=== PATIENT | female | born 1945 | race Hispanic/Latino ===

== ENCOUNTER 2017-10-09 11:18 | Emergency (ER) | payer MEDICARE ==
[~2017-10-09] VITALS: Ht 152.4 cm; Wt 54.4 kg
[2017-10-09] MEDS ORDERED: ASPIRIN 81 MG CHEW TAB PO ONE (11:30)
[2017-10-09] MEDS ORDERED: HYDROCODONE/APAP 7.5MG-325MG 1 EA TAB PO PRN (11:30)
[2017-10-09] MEDS ORDERED: ONDANSETRON HCL 4 MG ORAL DISINTEGRATING TAB ONE (11:33)
[2017-10-09 11:37] LABS: BASOPHILS % 0.3 % (0.0-1.0); EOSINOPHILS # (AUTO) 0.6 (0.0-0.4); EOSINOPHILS % 6.7 % (0.0-6.0); HEMATOCRIT 31.2 % (34.2-44.1); HEMOGLOBIN 10.5 g/dL (12.0-16.0); LYMPHOCYTES # (AUTO) 1.6 (1.0-3.2); LYMPHOCYTES % 18.7 % (18.0-39.1); MEAN CORPUSCULAR HEMOGLOBIN 27.2 pg (28-32); MEAN CORPUSCULAR HGB CONC 33.7 g/dL (31-35); MEAN CORPUSCULAR VOLUME 80.8 fL (81-99); MONOCYTES # (AUTO) 0.8 (0.2-0.8); MONOCYTES % 8.9 % (4.4-11.3); NEUTROPHILS % 58.3 % (38.7-80.0); PLATELET COUNT 134 x10e3/uL (140-360); RED BLOOD COUNT 3.86 x10e6/uL (3.6-5.1); RED CELL DISTRIBUTION WIDTH 14.5 % (11.7-14.4)
[2017-10-09 11:48] LABS: INR 1.15; PROTHROMBIN TIME 13.8 seconds (11.9-14.5)
[2017-10-09 11:49] LABS: PARTIAL THROMBOPLASTIN TIME 29.6 seconds (23.8-35.5)
[2017-10-09 11:55] LABS: ALBUMIN 3.4 g/dL (3.5-5.0); ALBUMIN/GLOBULIN RATIO 0.8 (0.8-2.0); ANION GAP 14.7 mmol/L (8-16); CALCIUM 8.9 mg/dL (8.4-10.2); CREATININE, SERUM 1.33 mg/dL (0.57-1.11); POTASSIUM 4.7 mmol/L (3.5-5.1)
[2017-10-09] MEDS ORDERED: ONDANSETRON HCL 4 MG ORAL DISINTEGRATING TAB PO ONE (12:00)
[2017-10-09 12:01] LABS: CREATINE KINASE MB 1.8 ng/mL (0-5.0)
[2017-10-09] MEDS ORDERED: SODIUM CHLORIDE 0.9% 500ML 500 ML IV STA (12:01)
[2017-10-09 12:25] LABS: EOSINOPHILS % (MANUAL) 3 % (0-7); LYMPHOCYTES % (MANUAL) 21 % (19-48); MONOCYTES % (MANUAL) 8 % (3.4-9.0); NEUTROPHILS % (MANUAL) 68 % (40-74); PLATELET ESTIMATE ADEQUATE; PLATELET MORPHOLOGY COMMENT NORMAL; RBC MORPHOLOGY COMMENT NORMAL
[2017-10-09 13:16] LABS: BILIRUBIN,URINE NEGATIVE (NEGATIVE); CLARITY,URINE HAZY (CLEAR); COLOR,URINE YELLOW (YELLOW); KETONES,URINE NEGATIVE (NEGATIVE); LEUKOCYTE ESTERASE ,URINE NEGATIVE (NEGATIVE); NITRITE,URINE NEGATIVE (NEGATIVE); PROTEIN,URINE DIPSTICK 2+ (NEGATIVE); URINE UROBILINOGEN 0.2 mg/dL (0.2 - 1)
[2017-10-09 13:18] LABS: WBC,URINE (MAN) 0-5 /HPF (0-5)
[2017-10-09 13:19] LABS: BACTERIA,URINE FEW /HPF; EPITHELIAL CELLS,URINE FEW /LPF
--- NOTE | 2017-10-09 15:46 | Diagnostic Imaging Report ---
ADDENDUM #1 Dose modulation, iterative reconstruction, and/or weight based adjustment of the mA/kV was utilized to reduce the radiation dose to as low as reasonably achievable. Signed by: Dr. Michoacano Marquez M.D. on 10/12/2017 5:03 PM ORIGINAL REPORT Exam: Soft tissue neck CT with IV contrast History: Left-sided facial pain, rule out abscess Comparison studies: None Technique: Axial, coronal and sagittal images from the skull base to the thoracic inlet. Coronal and sagittal images reconstructed from the axial data. Intravenous contrast: 100 cc of Omnipaque 300. Findings: Soft tissues: There is mild asymmetric soft tissue fullness at the base of tongue which extends into the vallecula which has the appearance of lymphoid hyperplasia but could be correlated with direct visualization. No other mass. No rim-enhancing fluid collection indicate abscess. Lymph nodes: Mildly prominent, nonnecrotic enhancing left suprahyoid jugular chain lymph nodes with a left to a node which measures up to 2.5 cm. Mildly enhancing right level 2A lymph node is not significantly enlarged and may be reactive. Vessels: Carotid and vertebral arteries are patent. Moderate scattered calcified atherosclerosis in the aortic arch. Atherosclerosis at the left subclavian artery origin results in only mild stenosis. Calcified atherosclerosis in the cervical carotid bulbs without hemodynamically significant stenosis. Thyroid gland: Small thyroid gland may be sequela of chronic thyroiditis or previous thyroid ablation in the appropriate clinical setting. Parotid glands: Mild asymmetric enhancement of the left parotid gland compared to the right. No distinct mass identified. No calcified sialolith. Submandibular glands: Homogeneous, normal in size, no mass. Orbits: No abnormalities. Paranasal sinuses: Clear. Temporal bones: No abnormalities. Skull base and facial bones: Intact. Dentition: Multiple absent mandibular and maxillary teeth. No periapical lucencies. Lung apices: Nonspecific scarring bilaterally. There are reticulonodular densities in the bilateral upper lobes (left greater than right) in a tree-in-bud pattern. Cervical spine: Strain cervical curvature may be positional. Mild multilevel cervical and thoracic disc degeneration. Disc osteophyte complexes from C3 to T1 indent the thecal sac but do not result in significant canal stenosis. Focal ossification posterior longitudinal ligament at C6 result in only mild canal stenosis. Incidental findings: Partially imaged left frontal parietal hypodensity may reflect sequela of left MCA infarct in this patient with history of prior CVA. IMPRESSION: 1. Mild asymmetric left parotid enhancement may reflect nonspecific infectious or inflammatory parotiditis. No discrete discrete parotid mass. No abscess. 2. Mildly prominent reactive left cervical lymph nodes which can be followed on a clinical basis. Recommend follow-up neck CT of lymph nodes enlarge over time. 3. Mildly prominent asymmetric soft tissue at the left base of tongue favored to represent lymphoid hyperplasia. Recommend correlation with direct visualization 4. Left frontoparietal hypodensity, possibly sequela of left MCA infarct in this patient with history of prior CVA (cannot further evaluate on this exam). Correlate clinically. Recommend follow-up CT or MRI to further evaluate if not previously performed. 5. Nonspecific bilateral upper lobe reticulonodular densities may reflect nonspecific infectious or inflammatory bronchiolitis. Signed by: Dr. Michoacano Marquez M.D. on 10/09/2017 3:43 PM
[2017-10-09] MEDS ORDERED: IOPAMIDOL 370 MG/ML 200 ML INFUS..BTL INJ ONE (18:09)
[2017-10-09] MEDS ORDERED: SODIUM CHLORIDE 0.9% 50ML 50 ML ONE (18:09)
== END 2017-10-09 16:40 | disposition home or self-care (01) ==
LOC: ER 11:18
DX: K11.21 Acute sialoadenitis (principal); I10 Essential (primary) hypertension; E11.9 Type 2 diabetes mellitus without complications; E03.9 Hypothyroidism, unspecified; Z94.4 Liver transplant status; Z86.73 Personal history of transient ischemic attack (TIA), and cerebral infarction without residual deficits
CPT/HCPCS: 36415; 70491; 80053; 81001; 82550; 82553; 83605; 84484; 85025; 85610; 85730; 87040; 87086; 99284; J7040; Q9967

== ENCOUNTER 2018-05-13 16:43 | Observation (INO) | payer MEDICARE ==
[~2018-05-13] VITALS: Ht 152.4 cm; Wt 46.8 kg
--- OUTSIDE RECORDS SUMMARY | 2018-05-13 16:46 | XMS REPORT ---
[facility] Address Unknown Phone Unavailable Care Team Providers Care Ball Fringe Machine Operator Name Role Phone Usman BEAR Unavailable Unavailable Problems This patient has no known problems. Allergies, Adverse Reactions, Alerts This patient has no known allergies or adverse reactions. Medications This patient has no known medications. Results Test Description Test Time Test Comments Text Results Atomic Results Result Comments CT SOFT TISSUE NECK W 2017-10-09 15:11:00 [facility] [address] [address] Patient Name: NARAYAN RASHEED MR #: [id number] : 1945 Age/Sex: 72/F Req #: [id number] Adm Physician: Ordered by: ROBERT BEJARANO SIGNING TEACHER Report #: [id number] Location: ER Room/Bed: Procedure: [id number] CT/CT SOFT TISSUE NECK W Exam Date: 10/09/17 Exam Time: 1230 REPORT STATUS: Signed ADDENDUM #1 Dose modulation, iterative reconstruction, and/or weight based adjustment of the mA/kV was utilized to reduce the radiation dose to as low as reasonably achievable. Signed by: Dr. Josette Marquez M.D. on 10/12/2017 5:03 PM ORIGINAL REPORT Exam: Soft tissue neck CT with IV contrast History: Left-sided facial pain, rule out abscess Comparison studies: None Technique: Axial, coronal and sagittal images from the skull base to the thoracic inlet. Coronal and sagittal images reconstructed from the axial data. Intravenous contrast: 100 cc of Omnipaque 300. Findings: Soft tissues: There is mild asymmetric soft tissue fullness at the base of tongue which extends into the vallecula which has the appearance of lymphoid hyperplasia but could be correlated with direct visualization. No other mass. No rim-enhancing fluid collection indicate abscess. Lymph nodes: Mildly prominent, nonnecrotic enhancing left suprahyoid jugular chain lymph nodes with a left to a node which measures up to 2.5 cm. Mildly enhancing right level 2A lymph node is not significantly enlarged and may be reactive. Vessels: Carotid and vertebral arteries are patent. Moderate scattered calcified atherosclerosis in the aortic arch. Atherosclerosis at the left subclavian artery origin results in only mild stenosis. Calcified atherosc lerosis in the cervical carotid bulbs without hemodynamically significant stenosis. Thyroid gland: Small thyroid gland may be sequela of chronic thyroiditis or previous thyroid ablation in the appropriate clinical setting. Parotid glands: Mild asymmetric enhancement of the left parotid gland compared to the right. No distinct mass identified. No calcified sialolith. Submandibular glands: Homogeneous, normal in size, no mass. Orbits: No abnormalities. Paranasal sinuses: Clear. Temporal bones: No abnormalities. Skull base and facial bones: Intact. Dentition: Multiple absent mandibular and maxillary teeth. No periapical lucencies. Lung apices: Nonspecific scarring bilaterally. There are reticulonodular densities in the bilateral upper lobes (left greater than right) in a tree-in-bud pattern. Cervical spine: Strain cervical curvature may be positional. Mild multilevel cervical and thoracic disc degeneration. Disc osteophyte complexes from C3 to T1 indent the thecal sac but do not result in significant canal stenosis. Focal ossification posterior longitudinal ligament at C6 result in only mild canal stenosis. Incidental findings: Partially imaged left frontal parietal hypodensity may reflect sequela of left MCA infarct in this patient with history of prior CVA. IMPRESSION: 1. Mild asymmetric left parotid enhancement may reflect nonspecific infectious or inflammatory parotiditis. No discrete discrete parotid mass. No abscess. 2. Mildly prominent reactive left cervical lymph nodes which can be followed on a clinical basis. Recommend follow-up neck CT of lymph nodes enlarge over time. 3. Mildly prominent asymmetric soft tissue at the left base of tongue favored to represent lymphoid hyperplasia. Recommend correlation with direct visualization 4. Left frontoparietal hypodensity, possibly sequela of left MCA infarct in this patient with history of prior CVA (cannot further evaluate on this exam). Correlate clinically. Recommend follow-up CT or MRI to further evaluate if not previously performed. 5. Nonspecific bilateral upper lobe reticulonodular densities may reflect nonspecific infectious or inflammatory bronchiolitis. Signed by: Dr. Josette Marquez M.D. on 10/09/2017 3:43 PM Dictated By: JOSETTE MARQUEZ MD [id number] Transcribed By: REMI on 10/09/17 1543 COPY TO: ROBERT BEJARANO NP
[2018-05-13 20:10] LABS: BASOPHILS % 0.4 % (0.0-1.0); EOSINOPHILS # (AUTO) 1.8 (0.0-0.4); EOSINOPHILS % 18.6 % (0.0-6.0); HEMATOCRIT 25.6 % (34.2-44.1); HEMOGLOBIN 7.8 g/dL (12.0-16.0); LYMPHOCYTES # (AUTO) 2.6 (1.0-3.2); LYMPHOCYTES % 27.1 % (18.0-39.1); MEAN CORPUSCULAR HGB CONC 30.5 g/dL (31-35); MEAN CORPUSCULAR VOLUME 85.3 fL (81-99); MONOCYTES # (AUTO) 0.5 (0.2-0.8); NEUTROPHILS # (AUTO) 4.5 (2.1-6.9); NEUTROPHILS % 47.6 % (38.7-80.0); PLATELET COUNT 220 x10e3/uL (140-360); RED CELL DISTRIBUTION WIDTH 15.5 % (11.7-14.4)
[2018-05-13 20:24] LABS: ALBUMIN 2.6 g/dL (3.5-5.0); ALBUMIN/GLOBULIN RATIO 0.6 (0.8-2.0); ANION GAP 10.3 mmol/L (8-16); CALCIUM 8.4 mg/dL (8.4-10.2); CREATININE, SERUM 1.39 mg/dL (0.57-1.11); POTASSIUM 4.3 mmol/L (3.5-5.1)
[2018-05-13] MEDS ORDERED: LISINOPRIL2.5 MG PO (21:17)
[2018-05-13] MEDS ORDERED: MIRTAZAPINE15 MG PO (21:17)
[2018-05-13] MEDS ORDERED: VITAMIN D32000 UNIT PO (21:17)
[2018-05-13] MEDS ORDERED: NEXIUM40 MG PO (21:17)
[2018-05-13] MEDS ORDERED: TACROLIMUS1 MG PO (21:17)
[2018-05-13] MEDS ORDERED: BROMFED DM COU118 ML PO (21:17)
[2018-05-13] MEDS ORDERED: TOPAMAX25 MG PO (21:17)
[2018-05-13] MEDS ORDERED: OXYBUTYNIN CHLOR5 MG PO (21:17)
[2018-05-13] MEDS ORDERED: NAPROXEN250 MG PO (21:17)
[2018-05-13] MEDS ORDERED: REMERON30 MG PO (21:17)
[2018-05-13] MEDS ORDERED: LEVOTHYROXINE88 MCG PO (21:17)
[2018-05-13] MEDS ORDERED: TEMAZEPAM15 MG PO (21:17)
[2018-05-13] MEDS ORDERED: ARICEPT5 MG PO (21:17)
[2018-05-13] MEDS ORDERED: MULTI-VITAMIN1 EACH PO (21:17)
[2018-05-13] MEDS ORDERED: ASPIR 8181 MG PO (21:17)
[2018-05-13] MEDS ORDERED: SODIUM CHLORIDE 0.9% 250ML 250 ML IV ONE (22:30)
[2018-05-13] MEDS ORDERED: NAPROXEN 250 MG TAB PO PRN (22:45)
[2018-05-14] VITALS (7 sets, daily range): BP systolic 133–166; BP diastolic 62–70
[2018-05-14] MEDS ORDERED: SODIUM CHLORIDE 0.9% 250ML 250 ML ONE ×2 (05:05→09:04)
--- NOTE | 2018-05-14 07:05 | NUR ---
PT RESTING IN BED A0X3. PT IS IN NO S.S OF DISTRESS. DENIES PAIN. PT IS CURRENTLY RECEIVED HER 1ST UNIT OF BLOOD FOR A LOW HBG LEVEL. RIGHT AC 18 G SITE IS CLEAN AND DRY . WILL CONTINUE TO MONITOR PT AT THIS TIME. FAMILY IS AT BEDSIDE, SIDE RAILSX2, BED WHEELS LOCKED, CALL LIGHT IS WITHIN EASY REACH, INSTRUCTED TO CALL FOR ASSISTANCE IF NEEDED
[2018-05-14] MEDS: PANTOPRAZOLE SOD 40 MG TABEC PO SCH (08:41)
[2018-05-14] MEDS: LEVOTHYROXINE SODIUM 88 MCG TAB PO SCH (08:41)
[2018-05-14] MEDS: ASPIRIN 81 MG CHEW TAB PO SCH (08:41)
[2018-05-14] MEDS: OXYBUTYNIN CHLORIDE 5 MG TAB PO SCH (08:41)
[2018-05-14] MEDS: TOPIRAMATE 25 MG TAB PO SCH (08:41)
[2018-05-14] MEDS: MULTIVITAMINS/MINERALS TAB PO SCH (08:41)
[2018-05-14] MEDS: TACROLIMUS 1 MG CAP PO SCH ×2 (08:41→17:46)
[2018-05-14] MEDS ORDERED: LISINOPRIL 2.5 MG TAB PO SCH (09:00)
--- NOTE | 2018-05-14 09:30 | NUR ---
2ND UNIT OF BLOOD STARTED VERIFIED WITH ANA LUCAS AT BEDSIDE. WILL MONITOR PT CLOSELY
--- NOTE | 2018-05-14 11:30 | NUR ---
2ND UNIT OF BLOOD COMPLETE. PT IS IN NO S.S OF DISTRESS. V/S ARE STABLE. WILL CONTINUE TO MONITOR PT AND DRAW BLOOD LEVEL PER PROTOCOL
[2018-05-14 13:46] LABS: BASOPHILS % 0.3 % (0.0-1.0); EOSINOPHILS # (AUTO) 1.5 (0.0-0.4); HEMATOCRIT 32.3 % (34.2-44.1); HEMOGLOBIN 10.3 g/dL (12.0-16.0); LYMPHOCYTES # (AUTO) 1.7 (1.0-3.2); LYMPHOCYTES % 19.7 % (18.0-39.1); MEAN CORPUSCULAR HEMOGLOBIN 27.3 pg (28-32); MEAN CORPUSCULAR HGB CONC 31.9 g/dL (31-35); MEAN CORPUSCULAR VOLUME 85.7 fL (81-99); MONOCYTES # (AUTO) 0.4 (0.2-0.8); MONOCYTES % 4.9 % (4.4-11.3); NEUTROPHILS # (AUTO) 4.8 (2.1-6.9); PLATELET COUNT 182 x10e3/uL (140-360); RED BLOOD COUNT 3.77 x10e6/uL (3.6-5.1); RED CELL DISTRIBUTION WIDTH 14.6 % (11.7-14.4)
--- NOTE | 2018-05-14 13:59 | NUR ---
History and Physical cc: low blood counts HPI: 73yoF, PCP , GI , found to have low blood counts; no abdominal pain/melena/hematochezia. Sent to hospital for transfusion. Last colonoscopy 2016 pt reports normal. PMH: liver ds s/p transplent, DM PSx: liver transplant allergies; see emr fh/Sh; widowe;d no etoh/cigs; meds; see MAr ROS; no f/c/s/n/v/D/ASHBY/vision changes/cp/skin rash v/s; revd PE nad anicteric ns1s2 mod bs soft nt nd no e/t a&ox3; vance skin dry n. affect labs/meds; revd A/P: 73yoF Moderate anemia KATELYN Hypothyroidism HTN GERD Dementia Insomnia PLAN d/c naproxen and lisinopril ivf RDW quite high and MCHC low, suggestive of iron deficiency anemia; cannot get anemia panel- got blood transfused renal U/S; Keep overnight for IVF, recheck BMP in am. Tony Husain MD, PhD.
[2018-05-14 14:04] LABS: ALBUMIN 2.4 g/dL (3.5-5.0); ALBUMIN/GLOBULIN RATIO 0.6 (0.8-2.0); CALCIUM 8.3 mg/dL (8.4-10.2); CREATININE, SERUM 1.29 mg/dL (0.57-1.11)
--- NOTE | 2018-05-14 15:27 | NUR ---
PENA letter given to patient. A signed copy placed in chart and to patient.
--- NOTE | 2018-05-14 15:30 | NUR ---
Fish And Wildlife Technician to bedside to discuss plan of care with patient/family. CM/SW role and care transitions discussed. Anticipated discharge plan discussed along with duration of care. CM/SW discussed patients right to make decisions in care. CM/SW work hours given. Patient lives: Patient lives alone. Patients son lives 5 minutes away from her. Admit/Transfer: Admit Hospital/ER visits since last admit: no POA/Emergency contact: Clement Boles Current/Previous Home Health: No PCP/Follow-up Care: Gaurav Jama MD Current/Previous DME: Patient has a cane but does not use it. Medications (referring to index hospitalization or the first time you were in the hospital) a. Were changes made in your medications when you were in the hospital on [date of index hospitalization]? Yes No Not sure Explain: Note: If no or not sure, please skip to question d b. Did you understand the changes? Yes No Explain: c. Were you able to obtain your new medications right away? Yes No n/a SNF only Explain: d. Were you able to take your medications like the doctor wanted you to? Yes No Explain: e. Did the hospital give you an accurate, easy to understand list of medications when you left? Yes No n/a SNF only Explain: Scale of 1-10 how comfortable does patient feel with disease management in outpatient setting: Other Services: Employment Status: Retired Areas of Concerns: Referral Needs: Education Needs: IMM/PENA given and signed (if applicable):JEAN
[2018-05-14] MEDS: SODIUM CHLORIDE 0.9% 1000ML 1,000 ML IV SCH (16:13)
[2018-05-14] MEDS: FERROUS SULFATE 325 MG TAB PO SCH (16:13)
[2018-05-14] MEDS ORDERED: MIRTAZAPINE 15 MG TAB PO SCH (21:00)
[2018-05-14] MEDS ORDERED: DONEPEZIL HCL 5 MG TAB PO SCH (21:00)
[2018-05-14] MEDS ORDERED: TEMAZEPAM 15 MG CAP PO SCH (21:00)
[2018-05-15] VITALS: BP 160/72
[2018-05-15 04:00] VITALS: BP 157/72
[2018-05-15] MEDS: LEVOTHYROXINE SODIUM 88 MCG TAB PO SCH (06:14)
[2018-05-15 06:28] LABS: ANION GAP 9.5 mmol/L (8-16); CALCIUM 8.2 mg/dL (8.4-10.2); CREATININE, SERUM 1.16 mg/dL (0.57-1.11); POTASSIUM 4.5 mmol/L (3.5-5.1)
[2018-05-15] MEDS ORDERED: FERROUS SULFAT325 MG PO (06:50)
--- NOTE | 2018-05-15 06:53 | NUR ---
Discharge summary A/P: 73yoF Moderate anemia KATELYN Hypothyroidism HTN GERD Dementia Insomnia PLAN d/c naproxen and lisinopril ivf RDW quite high and MCHC low, suggestive of iron deficiency anemia; cannot get anemia panel- got blood transfused renal U/S; Keep overnight for IVF, recheck BMP in am. 05/15 renal fn improving; pt wants to go home. encouraged to drink 8 glasses water daily and avoid Naproxen and all NSAIDS. d/c home stable f/u pcp 1 week d/c >35mins. Tony Husain MD, PhD.
[2018-05-15 08:00] VITALS: BP 147/65
[2018-05-15] MEDS: SODIUM CHLORIDE 0.9% 1000ML 1,000 ML IV SCH (08:10)
[2018-05-15 08:33] VITALS: BP 147/65
[2018-05-15] MEDS: FERROUS SULFATE 325 MG TAB PO SCH (08:48)
[2018-05-15] MEDS: ASPIRIN 81 MG CHEW TAB PO SCH (08:48)
[2018-05-15] MEDS: TOPIRAMATE 25 MG TAB PO SCH (08:48)
[2018-05-15] MEDS: MULTIVITAMINS/MINERALS TAB PO SCH (08:48)
[2018-05-15] MEDS: OXYBUTYNIN CHLORIDE 5 MG TAB PO SCH (08:48)
[2018-05-15] MEDS: PANTOPRAZOLE SOD 40 MG TABEC PO SCH (08:48)
[2018-05-15] MEDS: TACROLIMUS 1 MG CAP PO SCH (08:48)
--- NOTE | 2018-05-15 09:00 | NUR ---
PRESCRIPTIONS AND DISCHARGE INSTRUCTIONS GIVEN. PT VERBALIZED UNDERSTANDING. IV DC. PRESSURE DRESSING APPLIED AND TAPED.
--- NOTE | 2018-05-15 09:29 | NUR ---
PT IS OFF UNIT TO HOME
== END 2018-05-15 09:08 | disposition home or self-care (01) ==
LOC: ER 16:43 → ERHOLD 23:34 → UNDOADMOB 23:34 → ERHOLD 05-14 00:19 → MED/SURG 05-14 01:14
PROVIDERS: ADMIT Internal Medicine; ATTEND Internal Medicine
DX: D64.9 Anemia, unspecified (principal); K76.9 Liver disease, unspecified; Z94.4 Liver transplant status; I10 Essential (primary) hypertension; K21.9 Gastro-esophageal reflux disease without esophagitis; E03.9 Hypothyroidism, unspecified; G47.00 Insomnia, unspecified; F03.90 Unspecified dementia, unspecified severity, without behavioral disturbance, psychotic disturbance, mood disturbance, and anxiety; N17.9 Acute kidney failure, unspecified; Z79.4 Long term (current) use of insulin
CPT/HCPCS: 36415 ×3; 80048; 80053 ×2; 85025 ×2; 86850; 86900; 86920; 99281; 99284; G0378 ×2; J7030; J7050; J7507 ×2; P9016; S0164 ×2

== ENCOUNTER 2019-11-08 10:47 | Inpatient (IN) | payer MEDICARE, OTHER ==
[~2019-11-08] VITALS: Ht 152.4 cm; Wt 47.6 kg
[~2019-11-08 10:47] MED LIST: ARICEPT5 MG PO; ASPIR 8181 MG PO; BROMFED DM COU118 ML PO; CLINDAMYCIN HC300 MG PO; DESLORATADINE5 MG PO; FERROUS SULFAT325 MG PO; KEFLEX500 MG PO; LEVOTHYROXINE88 MCG PO; LISINOPRIL2.5 MG PO; MIRTAZAPINE15 MG PO; MULTI-VITAMIN1 EACH PO; NAPROXEN250 MG PO; NEXIUM40 MG PO; OXYBUTYNIN CHLOR5 MG PO; PREDNISONE20 MG PO; REMERON30 MG PO; TACROLIMUS1 MG PO; TEMAZEPAM15 MG PO; TOPAMAX25 MG PO; VITAMIN D32000 UNIT PO
[2019-11-08] MEDS ORDERED: SODIUM CHLORIDE 0.9% 1000ML 1,000 ML IV SCH ×2 (11:00→13:30)
[2019-11-08 11:39] LABS: BASOPHILS % 0.3 % (0.0-1.0); EOSINOPHILS % 0.2 % (0.0-6.0); HEMATOCRIT 39.8 % (34.2-44.1); HEMOGLOBIN 13.1 g/dL (12.0-16.0); LYMPHOCYTES # (AUTO) 2.8 (1.0-3.2); LYMPHOCYTES % 28.4 % (18.0-39.1); MEAN CORPUSCULAR HEMOGLOBIN 28.8 pg (28-32); MEAN CORPUSCULAR HGB CONC 32.9 g/dL (31-35); MEAN CORPUSCULAR VOLUME 87.5 fL (81-99); MONOCYTES # (AUTO) 0.6 (0.2-0.8); MONOCYTES % 5.9 % (4.4-11.3); NEUTROPHILS # (AUTO) 6.4 (2.1-6.9); NEUTROPHILS % 64.5 % (38.7-80.0); PLATELET COUNT 351 x10e3/uL (140-360); RED BLOOD COUNT 4.55 x10e6/uL (3.6-5.1); RED CELL DISTRIBUTION WIDTH 16.1 % (11.7-14.4)
[2019-11-08 11:47] LABS: CLARITY,URINE TURBID (CLEAR); COLOR,URINE BROWN (YELLOW)
[2019-11-08 11:48] LABS: BILIRUBIN,URINE LARGE (NEGATIVE); INR 0.91; KETONES,URINE 1+ (NEGATIVE); LEUKOCYTE ESTERASE ,URINE LARGE (NEGATIVE); NITRITE,URINE POSITIVE (NEGATIVE); PROTEIN,URINE DIPSTICK >=300 (NEGATIVE); PROTHROMBIN TIME 12.7 seconds (11.9-14.5); URINE UROBILINOGEN 8 mg/dL (0.2 - 1)
[2019-11-08 11:55] LABS: ALBUMIN 3.8 g/dL (3.5-5.0); ANION GAP 16.5 mmol/L (8-16); CALCIUM 8.7 mg/dL (8.4-10.2); CREATININE, SERUM 5.18 mg/dL (0.57-1.11); POTASSIUM 5.5 mmol/L (3.5-5.1)
[2019-11-08 11:57] LABS: BACTERIA,URINE MANY /HPF; EPITHELIAL CELLS,URINE MODERATE /LPF; RBC,URINE >50 /HPF (0-5); WBC,URINE (MAN) >50 /HPF (0-5)
[2019-11-08 11:58] LABS: MUCUS,URINE MODERATE (RARE)
[2019-11-08] MEDS ORDERED: CEFTRIAXONE SOD 1 GM/NS 50 ML 50 ML IV ONE (12:00)
[2019-11-08 12:36] LABS: THYROID STIMULATING HORMONE 0.354 uIU/mL (0.350-4.940)
[2019-11-08 15:55] VITALS: BP 131/58
[2019-11-08 16:26] VITALS: BP 110/58
[2019-11-08 16:35] VITALS: BP 110/58
[2019-11-08 16:36] VITALS: BP 110/58
[2019-11-08] MEDS ORDERED: SODIUM CHLORIDE 0.9% 1000ML 1,000 ML IV ONE (17:15)
[2019-11-08] MEDS ORDERED: ACETAMINOPHEN 325 MG TAB PO PRN (18:00)
[2019-11-08] MEDS ORDERED: SODIUM BICARBONATE 8.4% 100 ML in SODIUM CHLORIDE 0.45% 1,000 ML IV SCH (18:00)
[2019-11-08] MEDS ORDERED: DOCUSATE SODIUM 100 MG CAP PO PRN (18:00)
[2019-11-08] MEDS ORDERED: DIOVAN80 MG PO (18:56)
[2019-11-08] MEDS ORDERED: METHYLPREDNISOLO4 M1 PO (19:26)
[2019-11-08] MEDS ORDERED: BACTRIM DS TAB1 EACH PO (19:39)
[2019-11-08 19:49] LABS: HEMATOCRIT 34.2 % (34.2-44.1); HEMOGLOBIN 11.2 g/dL (12.0-16.0)
[2019-11-08 20:00] VITALS: BP 117/57
[2019-11-08] MEDS ORDERED: SODIUM BICARBONATE 8.4% INJ 50 ML SYR IV STA (20:24)
[2019-11-08] MEDS ORDERED: DEXTROSE 5% IV SCH (20:30)
[2019-11-08] MEDS ORDERED: SODIUM BICARBONATE 8.4% IV SCH (20:30)
[2019-11-08] MEDS ORDERED: SOD POLYSTYRENE SULFONATE SUSP 15 GM/60 ML BTL PO ONE (20:30)
[2019-11-08] MEDS ORDERED: DEXTROSE 5% 1,000 ML IV ONE (20:47)
[2019-11-08] MEDS ORDERED: SODIUM BICARBONATE 8.4% SYRING 200 ML ONE (20:47)
[2019-11-08] MEDS: MIRTAZAPINE 15 MG TAB PO SCH (21:55)
[2019-11-08] MEDS: DONEPEZIL HCL 5 MG TAB PO SCH (21:55)
[2019-11-09] VITALS (8 sets, daily range): BP systolic 100–133; BP diastolic 59–70
[2019-11-09 01:10] LABS: HEMATOCRIT 29.9 % (34.2-44.1); HEMOGLOBIN 10.2 g/dL (12.0-16.0)
[2019-11-09 04:49] LABS: BASOPHILS % 0.2 % (0.0-1.0); EOSINOPHILS % 0.2 % (0.0-6.0); HEMATOCRIT 33.3 % (34.2-44.1); HEMOGLOBIN 11.2 g/dL (12.0-16.0); LYMPHOCYTES # (AUTO) 1.3 (1.0-3.2); LYMPHOCYTES % 21.6 % (18.0-39.1); MEAN CORPUSCULAR HEMOGLOBIN 29.4 pg (28-32); MEAN CORPUSCULAR HGB CONC 33.6 g/dL (31-35); MEAN CORPUSCULAR VOLUME 87.4 fL (81-99); MONOCYTES # (AUTO) 0.2 (0.2-0.8); MONOCYTES % 3.2 % (4.4-11.3); NEUTROPHILS # (AUTO) 4.6 (2.1-6.9); PLATELET COUNT 257 x10e3/uL (140-360); RED BLOOD COUNT 3.81 x10e6/uL (3.6-5.1); RED CELL DISTRIBUTION WIDTH 15.9 % (11.7-14.4)
[2019-11-09 05:08] LABS: ANION GAP 12.9 mmol/L (8-16); CALCIUM 7.5 mg/dL (8.4-10.2); CREATININE, SERUM 2.85 mg/dL (0.57-1.11); POTASSIUM 4.9 mmol/L (3.5-5.1)
[2019-11-09] MEDS ORDERED: DEXTROSE 50% SYRINGE 50 ML IV PRN (06:00)
[2019-11-09] MEDS: CEFTRIAXONE SOD 1 GM/NS 50 ML 50 ML IV SCH (06:12)
[2019-11-09] MEDS: LEVOTHYROXINE SODIUM 88 MCG TAB PO SCH (06:13)
[2019-11-09 07:05] LABS: INR 0.92; PARTIAL THROMBOPLASTIN TIME 25.2 seconds (23.8-35.5); PROTHROMBIN TIME 12.8 seconds (11.9-14.5)
[2019-11-09] MEDS: INSULIN REGULAR, HUMAN 100 UNIT/1 ML 3ML VIAL SQ SCH ×4 (07:30→21:00)
[2019-11-09] MEDS: FERROUS SULFATE 325 MG TAB PO SCH ×2 (08:00→18:26)
[2019-11-09] MEDS ORDERED: PANTOPRAZOLE SOD 40 MG TABEC PO SCH (09:00)
[2019-11-09] MEDS: MULTIVITAMINS/MINERALS TAB PO SCH (09:00)
[2019-11-09] MEDS: OXYBUTYNIN CHLORIDE 5 MG TAB PO SCH (09:00)
[2019-11-09] MEDS ORDERED: B&O 60MG R/S 60 MG SUPP PR PRN (09:45)
[2019-11-09] MEDS: CHOLECALCIFEROL 1,000 UNIT TAB PO SCH (11:48)
[2019-11-09] MEDS: PANTOPRAZOLE 40 MG 10ML VIAL IV SCH (11:48)
[2019-11-09] MEDS: TACROLIMUS 1 MG CAP PO SCH ×2 (11:48→18:26)
[2019-11-09] MEDS: TOPIRAMATE 25 MG TAB PO SCH ×2 (11:48→18:26)
[2019-11-09] MEDS: SODIUM BICARBONATE 8.4% SYRING 150 ML in DEXTROSE 5% 1,000 ML IV SCH ×2 (11:48→17:42)
[2019-11-09] MEDS: MIRTAZAPINE 15 MG TAB PO SCH (21:02)
[2019-11-09] MEDS: DONEPEZIL HCL 5 MG TAB PO SCH (21:02)
[2019-11-10] VITALS (8 sets, daily range): BP systolic 110–136; BP diastolic 50–72
[2019-11-10] MEDS: SODIUM BICARBONATE 8.4% SYRING 150 ML in DEXTROSE 5% 1,000 ML IV SCH ×3 (01:56→20:27)
[2019-11-10] MEDS: LEVOTHYROXINE SODIUM 88 MCG TAB PO SCH (05:43)
[2019-11-10] MEDS: CEFTRIAXONE SOD 1 GM/NS 50 ML 50 ML IV SCH (05:43)
[2019-11-10] MEDS: PANTOPRAZOLE 40 MG 10ML VIAL IV SCH (06:54)
[2019-11-10 07:08] LABS: HEMATOCRIT 33.2 % (34.2-44.1); HEMOGLOBIN 11.2 g/dL (12.0-16.0); MEAN CORPUSCULAR HEMOGLOBIN 28.9 pg (28-32); MEAN CORPUSCULAR HGB CONC 33.7 g/dL (31-35); MEAN CORPUSCULAR VOLUME 85.8 fL (81-99); PLATELET COUNT 248 x10e3/uL (140-360); RED BLOOD COUNT 3.87 x10e6/uL (3.6-5.1); RED CELL DISTRIBUTION WIDTH 15.6 % (11.7-14.4)
[2019-11-10 07:26] LABS: CALCIUM 7.5 mg/dL (8.4-10.2); CREATININE, SERUM 1.5 mg/dL (0.57-1.11)
[2019-11-10 08:00] LABS: BAND NEUTROPHILS % (MANUAL) 2 %; LYMPHOCYTES % (MANUAL) 33 % (19-48); MONOCYTES % (MANUAL) 4 % (3.4-9.0); NEUTROPHILS % (MANUAL) 61 % (40-74)
[2019-11-10 08:01] LABS: MICROCYTOSIS MODERATE
[2019-11-10 08:03] LABS: ANISOCYTOSIS SLIGHT; POIKILOCYTOSIS SLIGHT
[2019-11-10 09:31] LABS: CALCIUM 7.6 mg/dL (8.4-10.2); CREATININE, SERUM 1.5 mg/dL (0.57-1.11)
[2019-11-10] MEDS: INSULIN REGULAR, HUMAN 100 UNIT/1 ML 3ML VIAL SQ SCH ×4 (09:50→20:22)
[2019-11-10] MEDS: TACROLIMUS 1 MG CAP PO SCH ×2 (09:52→17:21)
[2019-11-10] MEDS: OXYBUTYNIN CHLORIDE 5 MG TAB PO SCH (09:52)
[2019-11-10] MEDS: CHOLECALCIFEROL 1,000 UNIT TAB PO SCH (09:52)
[2019-11-10] MEDS: MULTIVITAMINS/MINERALS TAB PO SCH (09:52)
[2019-11-10] MEDS: TOPIRAMATE 25 MG TAB PO SCH ×2 (09:52→17:21)
[2019-11-10] MEDS: FERROUS SULFATE 325 MG TAB PO SCH ×2 (09:52→17:21)
[2019-11-10] MEDS: MIRTAZAPINE 15 MG TAB PO SCH (20:27)
[2019-11-10] MEDS: ZOLPIDEM TARTRATE 5 MG TAB PO PRN (20:27)
[2019-11-10] MEDS: DONEPEZIL HCL 5 MG TAB PO SCH (20:27)
[2019-11-11] VITALS (8 sets, daily range): BP systolic 106–128; BP diastolic 49–64
[2019-11-11 04:48] LABS: BASOPHILS % 0.3 % (0.0-1.0); EOSINOPHILS # (AUTO) 0.2 (0.0-0.4); EOSINOPHILS % 2.5 % (0.0-6.0); HEMATOCRIT 30.2 % (34.2-44.1); HEMOGLOBIN 10.2 g/dL (12.0-16.0); LYMPHOCYTES # (AUTO) 3.4 (1.0-3.2); LYMPHOCYTES % 45.4 % (18.0-39.1); MEAN CORPUSCULAR HEMOGLOBIN 29.7 pg (28-32); MEAN CORPUSCULAR HGB CONC 33.8 g/dL (31-35); MEAN CORPUSCULAR VOLUME 87.8 fL (81-99); MONOCYTES # (AUTO) 0.6 (0.2-0.8); MONOCYTES % 7.8 % (4.4-11.3); NEUTROPHILS # (AUTO) 3.3 (2.1-6.9); NEUTROPHILS % 43.5 % (38.7-80.0); PLATELET COUNT 235 x10e3/uL (140-360); RED BLOOD COUNT 3.44 x10e6/uL (3.6-5.1)
[2019-11-11 05:09] LABS: ANION GAP 11.5 mmol/L (8-16); CALCIUM 7.4 mg/dL (8.4-10.2); CREATININE, SERUM 1.18 mg/dL (0.57-1.11); POTASSIUM 3.5 mmol/L (3.5-5.1)
[2019-11-11] MEDS: LEVOTHYROXINE SODIUM 88 MCG TAB PO SCH (05:46)
[2019-11-11] MEDS: PANTOPRAZOLE 40 MG 10ML VIAL IV SCH (05:46)
[2019-11-11] MEDS: CEFTRIAXONE SOD 1 GM/NS 50 ML 50 ML IV SCH (05:46)
[2019-11-11] MEDS: SODIUM BICARBONATE 8.4% SYRING 150 ML in DEXTROSE 5% 1,000 ML IV SCH ×3 (05:46→20:45)
[2019-11-11] MEDS: INSULIN REGULAR, HUMAN 100 UNIT/1 ML 3ML VIAL SQ SCH ×4 (07:30→21:16)
[2019-11-11] MEDS: MULTIVITAMINS/MINERALS TAB PO SCH (08:50)
[2019-11-11] MEDS: OXYBUTYNIN CHLORIDE 5 MG TAB PO SCH (08:50)
[2019-11-11] MEDS: FERROUS SULFATE 325 MG TAB PO SCH ×2 (08:50→17:15)
[2019-11-11] MEDS: CHOLECALCIFEROL 1,000 UNIT TAB PO SCH (08:54)
[2019-11-11] MEDS: TACROLIMUS 1 MG CAP PO SCH ×2 (08:54→17:15)
[2019-11-11] MEDS: TOPIRAMATE 25 MG TAB PO SCH ×2 (08:54→17:15)
[2019-11-11] MEDS: ONDANSETRON HCL INJ 2MG/ML 2ML 2 MG/ML VIAL IV PRN (20:00)
[2019-11-11] MEDS: MIRTAZAPINE 15 MG TAB PO SCH (20:45)
[2019-11-11] MEDS: DONEPEZIL HCL 5 MG TAB PO SCH (20:45)
[2019-11-11] MEDS: ZOLPIDEM TARTRATE 5 MG TAB PO PRN (20:46)
[2019-11-12] VITALS (10 sets, daily range): BP systolic 90–125; BP diastolic 50–73
[2019-11-12] MEDS: PANTOPRAZOLE 40 MG 10ML VIAL IV SCH (05:25)
[2019-11-12] MEDS: CEFTRIAXONE SOD 1 GM/NS 50 ML 50 ML IV SCH (05:25)
[2019-11-12] MEDS: LEVOTHYROXINE SODIUM 88 MCG TAB PO SCH (05:25)
[2019-11-12 05:26] LABS: BASOPHILS % 0.1 % (0.0-1.0); EOSINOPHILS % 0.3 % (0.0-6.0); HEMATOCRIT 28.6 % (34.2-44.1); HEMOGLOBIN 9.6 g/dL (12.0-16.0); LYMPHOCYTES # (AUTO) 2.7 (1.0-3.2); LYMPHOCYTES % 28.4 % (18.0-39.1); MEAN CORPUSCULAR HEMOGLOBIN 28.8 pg (28-32); MEAN CORPUSCULAR HGB CONC 33.6 g/dL (31-35); MEAN CORPUSCULAR VOLUME 85.9 fL (81-99); MONOCYTES # (AUTO) 0.9 (0.2-0.8); MONOCYTES % 9.4 % (4.4-11.3); NEUTROPHILS # (AUTO) 5.7 (2.1-6.9); NEUTROPHILS % 60.9 % (38.7-80.0); PLATELET COUNT 213 x10e3/uL (140-360); RED BLOOD COUNT 3.33 x10e6/uL (3.6-5.1); RED CELL DISTRIBUTION WIDTH 14.5 % (11.7-14.4)
[2019-11-12 06:05] LABS: ALBUMIN 2.4 g/dL (3.5-5.0); ALBUMIN/GLOBULIN RATIO 0.9 (0.8-2.0); ANION GAP 10.2 mmol/L (8-16); CREATININE, SERUM 1.21 mg/dL (0.57-1.11); POTASSIUM 3.2 mmol/L (3.5-5.1)
[2019-11-12] MEDS ORDERED: POTASSIUM CHLORIDE 20 MEQ TAB CR PO STA (06:18)
[2019-11-12] MEDS ORDERED: SODIUM CHLORIDE 0.9% 1000ML 1,000 ML ONE (06:29)
[2019-11-12] MEDS: SODIUM CHLORIDE 0.9% 1000ML 1,000 ML IV SCH ×2 (06:33→20:50)
[2019-11-12] MEDS: INSULIN REGULAR, HUMAN 100 UNIT/1 ML 3ML VIAL SQ SCH ×4 (07:30→21:00)
[2019-11-12] MEDS: TOPIRAMATE 25 MG TAB PO SCH ×2 (08:53→16:26)
[2019-11-12] MEDS: TACROLIMUS 1 MG CAP PO SCH ×2 (08:53→16:26)
[2019-11-12] MEDS: CHOLECALCIFEROL 1,000 UNIT TAB PO SCH (08:53)
[2019-11-12] MEDS: FERROUS SULFATE 325 MG TAB PO SCH ×2 (08:53→16:25)
[2019-11-12] MEDS: OXYBUTYNIN CHLORIDE 5 MG TAB PO SCH (08:53)
[2019-11-12] MEDS: MULTIVITAMINS/MINERALS TAB PO SCH (08:53)
[2019-11-12] MEDS ORDERED: CITRATE OF MAGNESIA 300ML BOTTLE PO ONE (10:00)
[2019-11-12] MEDS: ONDANSETRON HCL INJ 2MG/ML 2ML 2 MG/ML VIAL IV PRN (11:45)
[2019-11-12] MEDS ORDERED: POTASSIUM CHLORIDE 20 MEQ TAB CR PO NR (12:00)
[2019-11-12] MEDS ORDERED: TRAMADOL HCL 50 MG TAB PO PRN (16:00)
[2019-11-12] MEDS: ZOLPIDEM TARTRATE 5 MG TAB PO PRN (20:47)
[2019-11-12] MEDS: MIRTAZAPINE 15 MG TAB PO SCH (20:47)
[2019-11-12] MEDS: DONEPEZIL HCL 5 MG TAB PO SCH (20:47)
[2019-11-13] VITALS (10 sets, daily range): BP systolic 115–137; BP diastolic 47–67
[2019-11-13] MEDS: SODIUM CHLORIDE 0.9% 1000ML 1,000 ML IV SCH ×3 (05:00→10:00)
[2019-11-13 05:35] LABS: BASOPHILS % 0.4 % (0.0-1.0); EOSINOPHILS # (AUTO) 0.1 (0.0-0.4); EOSINOPHILS % 0.5 % (0.0-6.0); LYMPHOCYTES # (AUTO) 2.5 (1.0-3.2); LYMPHOCYTES % 21.6 % (18.0-39.1); MEAN CORPUSCULAR HEMOGLOBIN 32.4 pg (28-32); MEAN CORPUSCULAR HGB CONC 34.4 g/dL (31-35); MEAN CORPUSCULAR VOLUME 94.1 fL (81-99); MONOCYTES % 8.8 % (4.4-11.3); NEUTROPHILS # (AUTO) 7.7 (2.1-6.9); NEUTROPHILS % 67.6 % (38.7-80.0); PLATELET COUNT 199 x10e3/uL (140-360); RED CELL DISTRIBUTION WIDTH 15.2 % (11.7-14.4)
[2019-11-13] MEDS: CEFTRIAXONE SOD 1 GM/NS 50 ML 50 ML IV SCH (05:48)
[2019-11-13] MEDS: LEVOTHYROXINE SODIUM 88 MCG TAB PO SCH (05:48)
[2019-11-13] MEDS: PANTOPRAZOLE 40 MG 10ML VIAL IV SCH (05:48)
[2019-11-13 05:56] LABS: ALBUMIN 2.9 g/dL (3.5-5.0); ALBUMIN/GLOBULIN RATIO 0.9 (0.8-2.0); ANION GAP 13.2 mmol/L (8-16); CREATININE, SERUM 1.68 mg/dL (0.57-1.11); POTASSIUM 3.2 mmol/L (3.5-5.1)
[2019-11-13] MEDS: INSULIN REGULAR, HUMAN 100 UNIT/1 ML 3ML VIAL SQ SCH ×4 (07:30→21:00)
[2019-11-13] MEDS: FERROUS SULFATE 325 MG TAB PO SCH ×2 (08:00→17:00)
[2019-11-13] MEDS ORDERED: POTASSIUM CHLORIDE 20 MEQ TAB CR PO ONE (08:45)
[2019-11-13] MEDS: TACROLIMUS 1 MG CAP PO SCH ×2 (09:00→17:00)
[2019-11-13] MEDS: CHOLECALCIFEROL 1,000 UNIT TAB PO SCH (09:00)
[2019-11-13] MEDS: MULTIVITAMINS/MINERALS TAB PO SCH (09:00)
[2019-11-13] MEDS: OXYBUTYNIN CHLORIDE 5 MG TAB PO SCH (09:00)
[2019-11-13] MEDS: TOPIRAMATE 25 MG TAB PO SCH ×2 (09:00→17:00)
[2019-11-13] MEDS ORDERED: POTASSIUM CHLORIDE 20MEQ/100ML 100 ML IV ONE ×2 (10:30→13:00)
[2019-11-13] MEDS ORDERED: ONDANSETRON HCL INJ 2MG/ML 2ML 2 MG/ML VIAL ONE (12:26)
[2019-11-13] MEDS ORDERED: DEXAMETHASONE SOD PHOS INJ 4 MG/ML VIAL ONE (12:26)
[2019-11-13] MEDS ORDERED: PHENYLEPHRINE HCL 1% 10 MG/ML VIAL ONE (12:26)
[2019-11-13] MEDS ORDERED: PROPOFOL IV EMULSION 10 MG/ML 20 ML VIAL ONE (12:26)
[2019-11-13] MEDS ORDERED: SEVOFLURANE INHAL SOLN 250 ML PEN BTL ONE (12:26)
[2019-11-13] MEDS ORDERED: ROCURONIUM BROMIDE 10 MG/ML 5ML VIAL IV ONE (12:26)
[2019-11-13] MEDS ORDERED: LIDOCAINE HCL 2% LOCAL INJ 5 ML SDV VIAL INJ ONE (12:26)
[2019-11-13] MEDS ORDERED: FENTANYL CITRATE/PF 100MCG/2 ML INJ ONE (13:03)
[2019-11-13] MEDS ORDERED: IOPAMIDOL 300MG/ML 50ML INFUS..BTL IV ONE (13:13)
[2019-11-13] MEDS ORDERED: B&O 60MG R/S 60 MG SUPP PR ONE (13:13)
[2019-11-13] MEDS ORDERED: MORPHINE SULFATE INJ 4 MG/ML INJ 1ML IV PRN (15:15)
[2019-11-13] MEDS: DEXTROSE 5%/LACTATED RINGERS 1,000 ML IV SCH ×2 (15:15→17:21)
[2019-11-13] MEDS ORDERED: ONDANSETRON HCL INJ 2MG/ML 2ML 2 MG/ML VIAL IV PRN (15:15)
[2019-11-13] MEDS: DONEPEZIL HCL 5 MG TAB PO SCH (20:50)
[2019-11-13] MEDS: MIRTAZAPINE 15 MG TAB PO SCH (20:50)
[2019-11-14] VITALS (11 sets, daily range): BP systolic 110–155; BP diastolic 46–84
[2019-11-14 04:50] LABS: BASOPHILS % 0.1 % (0.0-1.0); HEMOGLOBIN 8.2 g/dL (12.0-16.0); LYMPHOCYTES # (AUTO) 1.6 (1.0-3.2); LYMPHOCYTES % 10.9 % (18.0-39.1); MEAN CORPUSCULAR HEMOGLOBIN 28.8 pg (28-32); MEAN CORPUSCULAR HGB CONC 32.8 g/dL (31-35); MEAN CORPUSCULAR VOLUME 87.7 fL (81-99); MONOCYTES # (AUTO) 0.9 (0.2-0.8); MONOCYTES % 5.9 % (4.4-11.3); NEUTROPHILS % 81.9 % (38.7-80.0); PLATELET COUNT 260 x10e3/uL (140-360); RED BLOOD COUNT 2.85 x10e6/uL (3.6-5.1); RED CELL DISTRIBUTION WIDTH 14.5 % (11.7-14.4)
[2019-11-14 05:11] LABS: ALBUMIN 2.2 g/dL (3.5-5.0); ALBUMIN/GLOBULIN RATIO 0.8 (0.8-2.0); ANION GAP 12.2 mmol/L (8-16); CALCIUM 7.4 mg/dL (8.4-10.2); CREATININE, SERUM 2.12 mg/dL (0.57-1.11); MAGNESIUM 1.8 MG/DL (1.3-2.1); PHOSPHORUS 3.7 MG/DL (2.3-4.7); POTASSIUM 4.2 mmol/L (3.5-5.1)
[2019-11-14] MEDS: LEVOTHYROXINE SODIUM 88 MCG TAB PO SCH (05:43)
[2019-11-14] MEDS: CEFTRIAXONE SOD 1 GM/NS 50 ML 50 ML IV SCH (05:46)
[2019-11-14] MEDS: DEXTROSE 5%/LACTATED RINGERS 1,000 ML IV SCH (05:46)
[2019-11-14] MEDS: PANTOPRAZOLE 40 MG 10ML VIAL IV SCH (05:52)
[2019-11-14] MEDS: INSULIN REGULAR, HUMAN 100 UNIT/1 ML 3ML VIAL SQ SCH ×4 (08:14→21:00)
[2019-11-14] MEDS: SODIUM CHLORIDE 0.9% 1000ML 1,000 ML IV SCH ×2 (09:34→19:59)
[2019-11-14] MEDS: MULTIVITAMINS/MINERALS TAB PO SCH (09:49)
[2019-11-14] MEDS: TACROLIMUS 1 MG CAP PO SCH ×2 (09:49→17:34)
[2019-11-14] MEDS: CHOLECALCIFEROL 1,000 UNIT TAB PO SCH (09:50)
[2019-11-14] MEDS: TOPIRAMATE 25 MG TAB PO SCH ×2 (09:50→17:34)
[2019-11-14] MEDS: OXYBUTYNIN CHLORIDE 5 MG TAB PO SCH (09:50)
[2019-11-14] MEDS: FERROUS SULFATE 325 MG TAB PO SCH ×2 (09:52→17:34)
[2019-11-14] MEDS: NYSTATIN SUSPENSION 5 ML UDC PO SCH ×2 (19:33→23:53)
[2019-11-14] MEDS: MIRTAZAPINE 15 MG TAB PO SCH (21:36)
[2019-11-14] MEDS: DONEPEZIL HCL 5 MG TAB PO SCH (21:36)
[2019-11-15] VITALS (7 sets, daily range): BP systolic 118–143; BP diastolic 41–64
[2019-11-15 04:57] LABS: BASOPHILS % 0.2 % (0.0-1.0); EOSINOPHILS % 0.4 % (0.0-6.0); HEMATOCRIT 21.7 % (34.2-44.1); LYMPHOCYTES # (AUTO) 2.2 (1.0-3.2); LYMPHOCYTES % 24.3 % (18.0-39.1); MEAN CORPUSCULAR HEMOGLOBIN 28.9 pg (28-32); MEAN CORPUSCULAR HGB CONC 32.3 g/dL (31-35); MEAN CORPUSCULAR VOLUME 89.7 fL (81-99); MONOCYTES # (AUTO) 0.7 (0.2-0.8); MONOCYTES % 7.7 % (4.4-11.3); NEUTROPHILS # (AUTO) 5.9 (2.1-6.9); NEUTROPHILS % 66.4 % (38.7-80.0); PLATELET COUNT 261 x10e3/uL (140-360); RED BLOOD COUNT 2.42 x10e6/uL (3.6-5.1); RED CELL DISTRIBUTION WIDTH 14.7 % (11.7-14.4)
[2019-11-15] MEDS: PANTOPRAZOLE 40 MG 10ML VIAL IV SCH (05:23)
[2019-11-15] MEDS: CEFTRIAXONE SOD 1 GM/NS 50 ML 50 ML IV SCH (05:23)
[2019-11-15] MEDS: LEVOTHYROXINE SODIUM 88 MCG TAB PO SCH (05:23)
[2019-11-15] MEDS: NYSTATIN SUSPENSION 5 ML UDC PO SCH ×4 (05:23→23:39)
[2019-11-15] MEDS: SODIUM CHLORIDE 0.9% 1000ML 1,000 ML IV SCH ×2 (05:23→19:00)
[2019-11-15 05:26] LABS: ALBUMIN 2.1 g/dL (3.5-5.0); ALBUMIN/GLOBULIN RATIO 0.8 (0.8-2.0); ANION GAP 10.7 mmol/L (8-16); CALCIUM 7.1 mg/dL (8.4-10.2); CREATININE, SERUM 1.89 mg/dL (0.57-1.11); MAGNESIUM 1.7 MG/DL (1.3-2.1); PHOSPHORUS 2.4 MG/DL (2.3-4.7); POTASSIUM 3.7 mmol/L (3.5-5.1)
[2019-11-15] MEDS: INSULIN REGULAR, HUMAN 100 UNIT/1 ML 3ML VIAL SQ SCH ×4 (07:30→21:00)
[2019-11-15] MEDS: FERROUS SULFATE 325 MG TAB PO SCH ×2 (08:00→18:02)
[2019-11-15] MEDS: OXYBUTYNIN CHLORIDE 5 MG TAB PO SCH (09:03)
[2019-11-15] MEDS: TACROLIMUS 1 MG CAP PO SCH ×2 (09:03→18:01)
[2019-11-15] MEDS: CHOLECALCIFEROL 1,000 UNIT TAB PO SCH (09:03)
[2019-11-15] MEDS: TOPIRAMATE 25 MG TAB PO SCH ×2 (09:03→18:01)
[2019-11-15] MEDS: MULTIVITAMINS/MINERALS TAB PO SCH (09:03)
[2019-11-15 09:33] LABS: BASOPHILS % 0.2 % (0.0-1.0); EOSINOPHILS # (AUTO) 0.1 (0.0-0.4); EOSINOPHILS % 0.7 % (0.0-6.0); HEMOGLOBIN 7.1 g/dL (12.0-16.0); LYMPHOCYTES # (AUTO) 1.7 (1.0-3.2); LYMPHOCYTES % 18.9 % (18.0-39.1); MEAN CORPUSCULAR HEMOGLOBIN 29.2 pg (28-32); MEAN CORPUSCULAR HGB CONC 32.4 g/dL (31-35); MEAN CORPUSCULAR VOLUME 90.1 fL (81-99); MONOCYTES # (AUTO) 0.6 (0.2-0.8); MONOCYTES % 7.1 % (4.4-11.3); NEUTROPHILS # (AUTO) 6.5 (2.1-6.9); NEUTROPHILS % 72.2 % (38.7-80.0); PLATELET COUNT 233 x10e3/uL (140-360); RED BLOOD COUNT 2.43 x10e6/uL (3.6-5.1); RED CELL DISTRIBUTION WIDTH 14.7 % (11.7-14.4)
[2019-11-15 09:35] LABS: HEMATOCRIT 21.9 % (34.2-44.1)
[2019-11-15] MEDS: DONEPEZIL HCL 5 MG TAB PO SCH (20:43)
[2019-11-15] MEDS: MIRTAZAPINE 15 MG TAB PO SCH (20:43)
[2019-11-16] VITALS (8 sets, daily range): BP systolic 123–152; BP diastolic 57–77
[2019-11-16 04:48] LABS: MEAN CORPUSCULAR HEMOGLOBIN 29.4 pg (28-32); MEAN CORPUSCULAR HGB CONC 32.9 g/dL (31-35); MEAN CORPUSCULAR VOLUME 89.4 fL (81-99); PLATELET COUNT 238 x10e3/uL (140-360); RED BLOOD COUNT 2.35 x10e6/uL (3.6-5.1); RED CELL DISTRIBUTION WIDTH 14.4 % (11.7-14.4)
[2019-11-16 04:57] LABS: HEMOGLOBIN 6.9 g/dL (12.0-16.0)
[2019-11-16 05:10] LABS: ALBUMIN 2.1 g/dL (3.5-5.0); ALBUMIN/GLOBULIN RATIO 0.9 (0.8-2.0); ANION GAP 11.4 mmol/L (8-16); CALCIUM 7.1 mg/dL (8.4-10.2); CREATININE, SERUM 1.66 mg/dL (0.57-1.11); MAGNESIUM 1.6 MG/DL (1.3-2.1); PHOSPHORUS 2.2 MG/DL (2.3-4.7); POTASSIUM 3.4 mmol/L (3.5-5.1)
[2019-11-16] MEDS: NYSTATIN SUSPENSION 5 ML UDC PO SCH ×4 (06:06→23:53)
[2019-11-16] MEDS: PANTOPRAZOLE 40 MG 10ML VIAL IV SCH (06:06)
[2019-11-16] MEDS: LEVOTHYROXINE SODIUM 88 MCG TAB PO SCH (06:06)
[2019-11-16] MEDS: CEFTRIAXONE SOD 1 GM/NS 50 ML 50 ML IV SCH (06:06)
[2019-11-16] MEDS ORDERED: SODIUM CHLORIDE FLUSH 10 ML SYR INJ PRN (06:45)
[2019-11-16 06:59] LABS: PLATELET ESTIMATE ADEQUATE; PLATELET MORPHOLOGY COMMENT RARE EDTA CLUMPING; POIKILOCYTOSIS SLIGHT
[2019-11-16 07:00] LABS: RBC MORPHOLOGY COMMENT NORMAL
[2019-11-16 07:02] LABS: LYMPHOCYTES % (MANUAL) 25 % (19-48); MONOCYTES % (MANUAL) 8 % (3.4-9.0); NEUTROPHILS % (MANUAL) 67 % (40-74)
[2019-11-16] MEDS: INSULIN REGULAR, HUMAN 100 UNIT/1 ML 3ML VIAL SQ SCH ×4 (07:30→20:35)
[2019-11-16] MEDS ORDERED: SODIUM CHLORIDE 0.9% 250ML 250 ML IV SCH (07:30)
[2019-11-16] MEDS: FERROUS SULFATE 325 MG TAB PO SCH ×2 (07:59→17:44)
[2019-11-16] MEDS: TACROLIMUS 1 MG CAP PO SCH ×2 (09:33→17:50)
[2019-11-16] MEDS: OXYBUTYNIN CHLORIDE 5 MG TAB PO SCH (09:33)
[2019-11-16] MEDS: MULTIVITAMINS/MINERALS TAB PO SCH (09:33)
[2019-11-16] MEDS: CHOLECALCIFEROL 1,000 UNIT TAB PO SCH (09:34)
[2019-11-16] MEDS: TOPIRAMATE 25 MG TAB PO SCH ×2 (09:34→17:44)
[2019-11-16] MEDS ORDERED: FUROSEMIDE INJ 10 MG/ML 2 ML VIAL IV ONE (09:45)
[2019-11-16] MEDS ORDERED: POTASSIUM CHLORIDE 20 MEQ TAB CR PO ONE (10:30)
[2019-11-16] MEDS ORDERED: CALCIUM GLUCONATE 10% INJ 9.3 MEQ in SODIUM CHLORIDE 0.9% 100 ML 100 ML IV ONE (10:30)
[2019-11-16] MEDS ORDERED: POTASSIUM PHOSPHATE 20 MM in SODIUM CHLORIDE 0.9% 250ML 250 ML IV ONE (13:00)
[2019-11-16 15:54] LABS: HEMATOCRIT 30.3 % (34.2-44.1); HEMOGLOBIN 10.2 g/dL (12.0-16.0)
[2019-11-16] MEDS: DONEPEZIL HCL 5 MG TAB PO SCH (20:22)
[2019-11-16] MEDS: MIRTAZAPINE 15 MG TAB PO SCH (20:22)
[2019-11-17] VITALS: BP 138/65
[2019-11-17 04:00] VITALS: BP 146/62
[2019-11-17 04:48] LABS: BASOPHILS % 0.5 % (0.0-1.0); EOSINOPHILS # (AUTO) 0.2 (0.0-0.4); EOSINOPHILS % 2.6 % (0.0-6.0); HEMATOCRIT 28.5 % (34.2-44.1); HEMOGLOBIN 9.7 g/dL (12.0-16.0); LYMPHOCYTES % 22.2 % (18.0-39.1); MEAN CORPUSCULAR HEMOGLOBIN 29.8 pg (28-32); MEAN CORPUSCULAR VOLUME 87.4 fL (81-99); MONOCYTES # (AUTO) 0.9 (0.2-0.8); MONOCYTES % 9.9 % (4.4-11.3); NEUTROPHILS # (AUTO) 5.6 (2.1-6.9); NEUTROPHILS % 63.4 % (38.7-80.0); PLATELET COUNT 244 x10e3/uL (140-360); RED BLOOD COUNT 3.26 x10e6/uL (3.6-5.1)
[2019-11-17 05:17] LABS: ALBUMIN 2.4 g/dL (3.5-5.0); ALBUMIN/GLOBULIN RATIO 0.9 (0.8-2.0); ANION GAP 13.4 mmol/L (8-16); CALCIUM 7.3 mg/dL (8.4-10.2); CREATININE, SERUM 1.66 mg/dL (0.57-1.11); MAGNESIUM 1.4 MG/DL (1.3-2.1); POTASSIUM 3.4 mmol/L (3.5-5.1)
[2019-11-17] MEDS: CEFTRIAXONE SOD 1 GM/NS 50 ML 50 ML IV SCH (05:35)
[2019-11-17] MEDS: PANTOPRAZOLE 40 MG 10ML VIAL IV SCH (05:36)
[2019-11-17] MEDS: LEVOTHYROXINE SODIUM 88 MCG TAB PO SCH (05:36)
[2019-11-17] MEDS: NYSTATIN SUSPENSION 5 ML UDC PO SCH (06:00)
[2019-11-17] MEDS ORDERED: TYLENOL325 M2 PO (06:56)
[2019-11-17] MEDS ORDERED: PROBIOTIC & AC1 EACH PO (06:56)
[2019-11-17] MEDS ORDERED: COLACE100 MG PO (06:56)
[2019-11-17] MEDS ORDERED: MULTIVITAMINS1 EAC6 PO (06:56)
[2019-11-17] MEDS ORDERED: PANTOPRAZOLE SO20 MG PO (06:56)
[2019-11-17] MEDS ORDERED: NYSTATIN100000 UNI PO (06:56)
[2019-11-17] MEDS: INSULIN REGULAR, HUMAN 100 UNIT/1 ML 3ML VIAL SQ SCH (07:30)
[2019-11-17 08:00] VITALS: BP 137/61
[2019-11-17] MEDS: FERROUS SULFATE 325 MG TAB PO SCH (08:20)
[2019-11-17] MEDS: CHOLECALCIFEROL 1,000 UNIT TAB PO SCH (08:56)
[2019-11-17] MEDS: MULTIVITAMINS/MINERALS TAB PO SCH (08:56)
[2019-11-17] MEDS: TOPIRAMATE 25 MG TAB PO SCH (08:56)
[2019-11-17] MEDS: TACROLIMUS 1 MG CAP PO SCH (08:56)
[2019-11-17] MEDS: OXYBUTYNIN CHLORIDE 5 MG TAB PO SCH (08:56)
[2019-11-17 09:00] VITALS: BP 137/61
[2019-11-17] MEDS ORDERED: CALCIUM GLUCONATE 10% INJ 4.65 MEQ in SODIUM CHLORIDE 0.9% 50ML 50 ML IV ONE (09:00)
[2019-11-17] MEDS ORDERED: POTASSIUM CHLORIDE 20 MEQ TAB CR PO ONE (09:15)
[2019-11-17] MEDS ORDERED: SODIUM BICARBONATE 8.4% 75 ML in SODIUM CHLORIDE 0.45% 1,000 ML IV SCH (10:30)
== END 2019-11-17 11:00 | DRG 654 ==
LOC: ER 10:50 → ERHOLD 12:54 → IMCU 16:00
PROVIDERS: ADMIT Internal Medicine; ATTEND Internal Medicine
PROC: 0T788DZ Dilation of Bilateral Ureters with Intraluminal Device, Via Natural or Artificial Opening Endoscopic (ICD-10-PCS; 2019-11-13)
PROC: 0TQB0ZZ Repair Bladder, Open Approach (ICD-10-PCS; 2019-11-13)
PROC: BT141ZZ Fluoroscopy of Kidneys, Ureters and Bladder using Low Osmolar Contrast (ICD-10-PCS; 2019-11-13)
PROC: 0TBB0ZZ Excision of Bladder, Open Approach (ICD-10-PCS; principal; 2019-11-13 13:30)
PROC: 0DB80ZZ Excision of Small Intestine, Open Approach (ICD-10-PCS; 2019-11-13 13:30)
PROC: 30233N1 Transfusion of Nonautologous Red Blood Cells into Peripheral Vein, Percutaneous Approach (ICD-10-PCS; 2019-11-16)
DX: N32.1 Vesicointestinal fistula (principal); N17.9 Acute kidney failure, unspecified; N39.0 Urinary tract infection, site not specified; E87.1 Hypo-osmolality and hyponatremia; Z94.4 Liver transplant status; E86.0 Dehydration; N18.3 Chronic kidney disease, stage 3 (moderate); I12.9 Hypertensive chronic kidney disease with stage 1 through stage 4 chronic kidney disease, or unspecified chronic kidney disease; E87.5 Hyperkalemia; R31.0 Gross hematuria; E03.9 Hypothyroidism, unspecified; R53.81 Other malaise; D64.9 Anemia, unspecified; E83.51 Hypocalcemia; B96.4 Proteus (mirabilis) (morganii) as the cause of diseases classified elsewhere; B96.20 Unspecified Escherichia coli [E. coli] as the cause of diseases classified elsewhere; E87.6 Hypokalemia; B95.4 Other streptococcus as the cause of diseases classified elsewhere; N81.10 Cystocele, unspecified; N81.6 Rectocele; N95.2 Postmenopausal atrophic vaginitis; G30.9 Alzheimer's disease, unspecified; F02.80 Dementia in other diseases classified elsewhere, unspecified severity, without behavioral disturbance, psychotic disturbance, mood disturbance, and anxiety; Z86.73 Personal history of transient ischemic attack (TIA), and cerebral infarction without residual deficits
CPT/HCPCS: 36415; 51700; 74176; 74420; 76770; 80048; 80053; 80197; 81001; 82140; 82948; 83036; 83605; 83690; 83735; 84100; 84443; 85007; 85014; 85018; 85025; 85027; 85610; 85730; 86850; 86900; 86920; 87040; 87086; 87186; 88307; 88309; 88331; 93005; 96372; 97139; 99284; C1758; J0610; J0696; J1100; J1817; J1940; J2001; J2370; J2405; J3010; J3480; J7030; J7050; J7070; J7507; P9016; U0002

== ENCOUNTER → 2019-12-13 | Outpatient (CLI) | payer MEDICARE ==
[~2019-12-13] MED LIST changes: +ASPIRIN CHEW81 MG PEG; +BACTRIM DS TAB1 EACH PO; +COLACE100 MG PO; +DIATRIZOATE MEGLUMINE 300 MG/1 ML BTL UR ONE; +DIOVAN80 MG PO; +GLIMEPIRIDE2 MG PO; +METHYLPREDNISOLO4 M1 PO; +MULTIVITAMINS1 EAC6 PO; +NYSTATIN100000 UNI PO; +PANTOPRAZOLE SO20 MG PO; +PROBIOTIC & AC1 EACH PO; +TYLENOL325 M2 PO; +VALSARTAN80 MG GT; +ZOFRAN4 MG PO
== END ==
LOC: DX 11:42
PROVIDERS: ATTEND Urology
DX: R31.0 Gross hematuria (principal); N18.9 Chronic kidney disease, unspecified
CPT/HCPCS: 74430

== ENCOUNTER 2019-12-14 14:04 | Inpatient (IN) | payer MEDICARE ==
[~2019-12-14] VITALS: Ht 152.4 cm; Wt 56.7 kg
[~2019-12-14 14:04] MED LIST changes: -ASPIRIN CHEW81 MG PEG; -DIATRIZOATE MEGLUMINE 300 MG/1 ML BTL UR ONE; -GLIMEPIRIDE2 MG PO; -VALSARTAN80 MG GT; -ZOFRAN4 MG PO
[2019-12-14] MEDS ORDERED: SODIUM CHLORIDE 0.9% 1000ML 1,000 ML IV SCH ×3 (14:30→18:00)
[2019-12-14 14:56] LABS: BASOPHILS % 0.2 % (0.0-1.0); EOSINOPHILS # (AUTO) 0.1 (0.0-0.4); EOSINOPHILS % 0.9 % (0.0-6.0); HEMOGLOBIN 8.7 g/dL (12.0-16.0); LYMPHOCYTES # (AUTO) 2.1 (1.0-3.2); LYMPHOCYTES % 25.7 % (18.0-39.1); MEAN CORPUSCULAR HEMOGLOBIN 28.7 pg (28-32); MEAN CORPUSCULAR HGB CONC 33.5 g/dL (31-35); MEAN CORPUSCULAR VOLUME 85.8 fL (81-99); MONOCYTES # (AUTO) 0.7 (0.2-0.8); MONOCYTES % 8.6 % (4.4-11.3); NEUTROPHILS # (AUTO) 5.1 (2.1-6.9); NEUTROPHILS % 63.2 % (38.7-80.0); PLATELET COUNT 379 x10e3/uL (140-360); RED BLOOD COUNT 3.03 x10e6/uL (3.6-5.1); RED CELL DISTRIBUTION WIDTH 13.2 % (11.7-14.4)
[2019-12-14 15:19] LABS: ALANINE AMINOTRANSFERASE 11 IU/L (0-55); ALBUMIN 1.9 g/dL (3.5-5.0); ALBUMIN/GLOBULIN RATIO 0.4 (0.8-2.0); ALKALINE PHOSPHATASE 98 IU/L (40-150); ANION GAP 14.4 mmol/L (8-16); BLOOD UREA NITROGEN 12 mg/dL (7-26); BUN/CREATININE RATIO 15 (6-25); CALCIUM 7.7 mg/dL (8.4-10.2); CARBON DIOXIDE 19 mmol/L (22-29); CHLORIDE 97 mmol/L (98-107); CREATINE KINASE 14 IU/L (29-168); EST GLOMERULAR FILTRATION RATE > 60 ML/MIN (60-); GLUCOSE 101 mg/dL (74-118); POTASSIUM 3.4 mmol/L (3.5-5.1); SODIUM 127 mmol/L (136-145)
[2019-12-14 17:54] VITALS: BP 151/76
[2019-12-14 17:55] VITALS: BP 151/76
[2019-12-14] MEDS ORDERED: ONDANSETRON HCL INJ 2MG/ML 2ML 2 MG/ML VIAL IV PRN (18:00)
[2019-12-14] MEDS ORDERED: ACETAMINOPHEN 325 MG TAB PO PRN (18:00)
[2019-12-14] MEDS ORDERED: DOCUSATE SODIUM 100 MG CAP PO PRN (18:00)
[2019-12-14 18:04] VITALS: BP 151/76
[2019-12-14] MEDS ORDERED: DEXTROSE 5%/0.45% SOD CHL 1,000 ML IV SCH (18:15)
[2019-12-14] MEDS: NYSTATIN SUSPENSION 5 ML UDC PO SCH ×2 (18:30→23:52)
[2019-12-14] MEDS: DEXTROSE 5%/0.9% SOD CHL 1,000 ML IV SCH (18:31)
[2019-12-14] MEDS ORDERED: FLUCONAZOLE 100 MG/NS 50 ML 50 ML IV SCH (20:00)
[2019-12-14 20:23] VITALS: BP 151/69
[2019-12-14 20:24] VITALS: BP 151/69
[2019-12-14] MEDS ORDERED: MIRTAZAPINE 15 MG TAB PO SCH (21:00)
[2019-12-14 21:57] LABS: CLARITY,URINE CLEAR (CLEAR); COLOR,URINE YELLOW (YELLOW); KETONES,URINE NEGATIVE (NEGATIVE); LEUKOCYTE ESTERASE ,URINE NEGATIVE (NEGATIVE); NITRITE,URINE NEGATIVE (NEGATIVE); PROTEIN,URINE DIPSTICK 1+ (NEGATIVE); URINE UROBILINOGEN 0.2 mg/dL (0.2 - 1)
[2019-12-14] MEDS: TACROLIMUS 1 MG CAP PO SCH (21:59)
[2019-12-14 22:02] LABS: BACTERIA,URINE FEW /HPF; EPITHELIAL CELLS,URINE MODERATE /LPF; RBC,URINE 0-5 /HPF (0-5)
[2019-12-14 23:53] VITALS: BP 152/77
[2019-12-15] VITALS (7 sets, daily range): BP systolic 138–164; BP diastolic 67–87
[2019-12-15 05:21] LABS: BASOPHILS % 0.3 % (0.0-1.0); EOSINOPHILS # (AUTO) 0.1 (0.0-0.4); EOSINOPHILS % 1.1 % (0.0-6.0); HEMATOCRIT 25.5 % (34.2-44.1); HEMOGLOBIN 8.6 g/dL (12.0-16.0); LYMPHOCYTES # (AUTO) 1.8 (1.0-3.2); LYMPHOCYTES % 27.2 % (18.0-39.1); MEAN CORPUSCULAR HEMOGLOBIN 29.1 pg (28-32); MEAN CORPUSCULAR HGB CONC 33.7 g/dL (31-35); MEAN CORPUSCULAR VOLUME 86.1 fL (81-99); MONOCYTES # (AUTO) 0.6 (0.2-0.8); MONOCYTES % 8.6 % (4.4-11.3); NEUTROPHILS % 61.3 % (38.7-80.0); PLATELET COUNT 381 x10e3/uL (140-360); RED BLOOD COUNT 2.96 x10e6/uL (3.6-5.1); RED CELL DISTRIBUTION WIDTH 13.2 % (11.7-14.4)
[2019-12-15 05:35] LABS: ALANINE AMINOTRANSFERASE 11 IU/L (0-55); ALBUMIN 1.8 g/dL (3.5-5.0); ALBUMIN/GLOBULIN RATIO 0.4 (0.8-2.0); ALKALINE PHOSPHATASE 90 IU/L (40-150); BLOOD UREA NITROGEN 10 mg/dL (7-26); BUN/CREATININE RATIO 13 (6-25); CALCIUM 7.4 mg/dL (8.4-10.2); CARBON DIOXIDE 20 mmol/L (22-29); CHLORIDE 100 mmol/L (98-107); CREATININE, SERUM 0.76 mg/dL (0.57-1.11); EST GLOMERULAR FILTRATION RATE > 60 ML/MIN (60-); GLUCOSE 167 mg/dL (74-118); SODIUM 130 mmol/L (136-145)
[2019-12-15] MEDS: NYSTATIN SUSPENSION 5 ML UDC PO SCH ×3 (05:46→17:11)
[2019-12-15] MEDS: DEXTROSE 5%/0.9% SOD CHL 1,000 ML IV SCH (05:46)
[2019-12-15] MEDS ORDERED: LEVOTHYROXINE SODIUM 50 MCG TAB PO SCH (06:00)
[2019-12-15] MEDS ORDERED: POTASSIUM CHLORIDE 20 MEQ TAB CR PO ONE (07:30)
[2019-12-15] MEDS ORDERED: PANTOPRAZOLE SOD 40 MG TABEC PO SCH (07:30)
[2019-12-15] MEDS ORDERED: CEFTRIAXONE SOD 1 GM/NS 50 ML 50 ML IV SCH (08:00)
[2019-12-15] MEDS: LACTOBACILLUS ACIDOPHILUS CAPSULE PO SCH ×2 (08:22→17:10)
[2019-12-15] MEDS: MEGESTROL ACETATE 40 MG TAB PO SCH ×2 (08:22→17:10)
[2019-12-15] MEDS: FERROUS SULFATE 325 MG TAB PO SCH ×2 (08:22→17:10)
[2019-12-15] MEDS: TACROLIMUS 1 MG CAP PO SCH (08:23)
[2019-12-15] MEDS: TOPIRAMATE 25 MG TAB PO SCH ×2 (08:23→17:11)
[2019-12-15] MEDS ORDERED: TACROLIMUS 1 MG CAP PO SCH (09:00)
[2019-12-15] MEDS ORDERED: OXYBUTYNIN CHLORIDE 5 MG TAB PO SCH (09:00)
[2019-12-15] MEDS ORDERED: MULTIVITAMINS/MINERALS TAB PO SCH ×2 (09:00)
[2019-12-15 10:49] LABS: PHOSPHORUS 2.6 MG/DL (2.3-4.7)
[2019-12-15 10:54] LABS: MAGNESIUM 0.8 MG/DL (1.3-2.1)
[2019-12-15] MEDS ORDERED: MAGNESIUM SULFATE 2GM/50ML 50 ML IV ONE (13:15)
[2019-12-15 15:39] LABS: MAGNESIUM 1.4 MG/DL (1.3-2.1); PHOSPHORUS 2.1 MG/DL (2.3-4.7); POTASSIUM 4.1 mmol/L (3.5-5.1)
[2019-12-15] MEDS ORDERED: SODIUM PHOSPHATE 15 MMOL in SODIUM CHLORIDE 0.9% 250ML 250 ML INJ ONE (18:00)
== END 2019-12-15 22:30 | disposition home or self-care (01) | DRG 640 ==
LOC: ER 15:07 → ERHOLD 15:31 → MED/SURG2 16:40
PROVIDERS: ADMIT Internal Medicine; ATTEND Internal Medicine
DX: R62.7 Adult failure to thrive (principal); E43 Unspecified severe protein-calorie malnutrition; B37.0 Candidal stomatitis; E87.1 Hypo-osmolality and hyponatremia; N39.0 Urinary tract infection, site not specified; Z94.4 Liver transplant status; E44.1 Mild protein-calorie malnutrition; Z68.1 Body mass index [BMI] 19.9 or less, adult; I12.9 Hypertensive chronic kidney disease with stage 1 through stage 4 chronic kidney disease, or unspecified chronic kidney disease; N18.30 Chronic kidney disease, stage 3 unspecified; E87.6 Hypokalemia; G40.909 Epilepsy, unspecified, not intractable, without status epilepticus; L89.152 Pressure ulcer of sacral region, stage 2; E11.22 Type 2 diabetes mellitus with diabetic chronic kidney disease; E86.0 Dehydration; F03.90 Unspecified dementia, unspecified severity, without behavioral disturbance, psychotic disturbance, mood disturbance, and anxiety; R53.81 Other malaise
CPT/HCPCS: 36415; 70450; 71045; 74430; 80053; 81001; 82550; 82553; 82948; 83690; 83735; 84100; 84132; 84134; 84295; 84484; 85025; 99284; J0696; J1450; J3475; J7030; J7042; J7050; J7507; U0002

== ENCOUNTER 2020-01-29 13:32 | Inpatient (IN) | payer MEDICARE ==
[~2020-01-29] VITALS: Ht 152.4 cm; Wt 56.7 kg
[2020-01-29 15:12] LABS: BASOPHILS # (AUTO) 0.1 (0.0-0.1); BASOPHILS % 0.3 % (0.0-1.0); EOSINOPHILS # (AUTO) 0.4 (0.0-0.4); EOSINOPHILS % 2.6 % (0.0-6.0); HEMATOCRIT 25.4 % (34.2-44.1); HEMOGLOBIN 8.2 g/dL (12.0-16.0); LYMPHOCYTES # (AUTO) 2.6 (1.0-3.2); LYMPHOCYTES % 15.6 % (18.0-39.1); MEAN CORPUSCULAR HEMOGLOBIN 28.9 pg (28-32); MEAN CORPUSCULAR HGB CONC 32.3 g/dL (31-35); MEAN CORPUSCULAR VOLUME 89.4 fL (81-99); MONOCYTES # (AUTO) 1.4 (0.2-0.8); MONOCYTES % 8.7 % (4.4-11.3); NEUTROPHILS # (AUTO) 11.7 (2.1-6.9); NEUTROPHILS % 71.2 % (38.7-80.0); PLATELET COUNT 427 x10e3/uL (140-360); RED BLOOD COUNT 2.84 x10e6/uL (3.6-5.1); RED CELL DISTRIBUTION WIDTH 16.6 % (11.7-14.4)
[2020-01-29 15:36] LABS: CREATINE KINASE MB 2.5 ng/mL (0-5.0)
[2020-01-29 15:37] LABS: ALBUMIN 2.4 g/dL (3.5-5.0); ALBUMIN/GLOBULIN RATIO 0.6 (0.8-2.0); CREATININE, SERUM 1.71 mg/dL (0.57-1.11)
[2020-01-29 15:38] LABS: COLOR,URINE YELLOW (YELLOW); KETONES,URINE NEGATIVE (NEGATIVE); LEUKOCYTE ESTERASE ,URINE 2+ (NEGATIVE); NITRITE,URINE NEGATIVE (NEGATIVE); PROTEIN,URINE DIPSTICK NEGATIVE (NEGATIVE); URINE UROBILINOGEN 0.2 mg/dL (0.2 - 1)
[2020-01-29 15:44] LABS: CALCIUM 11.7 mg/dL (8.4-10.2)
[2020-01-29 15:51] LABS: BACTERIA,URINE MANY /HPF; CLARITY,URINE CLOUDY (CLEAR); EPITHELIAL CELLS,URINE FEW /LPF; RBC,URINE 21-50 /HPF (0-5); WBC,URINE (MAN) >50 /HPF (0-5); YEAST,URINE MANY
[2020-01-29] MEDS ORDERED: ASPIRIN 81 MG CHEW TAB PO ONE (17:30)
[2020-01-29] MEDS: CEFTRIAXONE SOD 1 GM/NS 50 ML 50 ML IV SCH (17:45)
[2020-01-29] MEDS: SODIUM CHLORIDE 0.9% 1000ML 1,000 ML IV SCH (17:45)
[2020-01-29] MEDS ORDERED: DEXTROSE 50% SYRINGE 50 ML IV PRN (17:45)
[2020-01-29] MEDS ORDERED: CEFTRIAXONE SOD 1 GM/NS 50 ML 50 ML IV ONE (17:46)
[2020-01-29] MEDS ORDERED: GLIMEPIRIDE2 MG PO (19:12)
[2020-01-29] MEDS: INSULIN LISPRO 100 UNIT/1 ML 3ML VIAL SQ SCH (21:00)
[2020-01-29 22:01] VITALS: BP 111/55
[2020-01-30] VITALS (7 sets, daily range): BP systolic 107–124; BP diastolic 52–80
[2020-01-30 02:33] LABS: CREATINE KINASE MB 2.7 ng/mL (0-5.0)
[2020-01-30] MEDS: SODIUM CHLORIDE 0.9% 1000ML 1,000 ML IV SCH ×2 (04:30→13:49)
[2020-01-30] MEDS ORDERED: ZOFRAN4 MG PO (04:58)
[2020-01-30] MEDS ORDERED: ASPIRIN CHEW81 MG PEG (04:58)
[2020-01-30] MEDS ORDERED: VALSARTAN80 MG GT (04:58)
[2020-01-30] MEDS: CEFTRIAXONE SOD 1 GM/NS 50 ML 50 ML IV SCH ×2 (05:16→17:29)
[2020-01-30 05:44] LABS: BASOPHILS # (AUTO) 0.1 (0.0-0.1); BASOPHILS % 0.4 % (0.0-1.0); EOSINOPHILS # (AUTO) 0.6 (0.0-0.4); EOSINOPHILS % 4.8 % (0.0-6.0); HEMATOCRIT 25.8 % (34.2-44.1); HEMOGLOBIN 8.2 g/dL (12.0-16.0); LYMPHOCYTES # (AUTO) 1.8 (1.0-3.2); LYMPHOCYTES % 14.8 % (18.0-39.1); MEAN CORPUSCULAR HEMOGLOBIN 29.4 pg (28-32); MEAN CORPUSCULAR HGB CONC 31.8 g/dL (31-35); MEAN CORPUSCULAR VOLUME 92.5 fL (81-99); MONOCYTES % 7.7 % (4.4-11.3); NEUTROPHILS # (AUTO) 8.7 (2.1-6.9); NEUTROPHILS % 70.7 % (38.7-80.0); PLATELET COUNT 393 x10e3/uL (140-360); RED BLOOD COUNT 2.79 x10e6/uL (3.6-5.1); RED CELL DISTRIBUTION WIDTH 16.6 % (11.7-14.4)
[2020-01-30 06:18] LABS: ALBUMIN 2.2 g/dL (3.5-5.0); ALBUMIN/GLOBULIN RATIO 0.5 (0.8-2.0); ANION GAP 11.5 mmol/L (8-16); CREATININE, SERUM 1.35 mg/dL (0.57-1.11); POTASSIUM 4.5 mmol/L (3.5-5.1)
[2020-01-30] MEDS ORDERED: ACETAMINOPHEN 325 MG TAB PO PRN (06:45)
[2020-01-30] MEDS ORDERED: DOCUSATE SODIUM 100 MG CAP PO PRN (06:45)
[2020-01-30] MEDS ORDERED: ONDANSETRON HCL 4 MG ORAL DISINTEGRATING TAB PO PRN (06:45)
[2020-01-30 07:04] LABS: CHOL/HDL RATIO 2.6 (3.0-3.6)
[2020-01-30] MEDS ORDERED: PANTOPRAZOLE SOD 40 MG TABEC PO SCH (07:30)
[2020-01-30] MEDS: LEVOTHYROXINE SODIUM 50 MCG TAB PO SCH (07:39)
[2020-01-30] MEDS: INSULIN LISPRO 100 UNIT/1 ML 3ML VIAL SQ SCH ×4 (09:35→21:00)
[2020-01-30 09:57] LABS: CREATINE KINASE MB 2.5 ng/mL (0-5.0)
[2020-01-30] MEDS: TOPIRAMATE 25 MG TAB PO SCH ×2 (10:25→17:29)
[2020-01-30] MEDS: MEGESTROL ACETATE 40 MG TAB PO SCH ×2 (10:25→17:29)
[2020-01-30] MEDS: TACROLIMUS 1 MG CAP PO SCH ×2 (10:25→17:29)
[2020-01-30] MEDS: OXYBUTYNIN CHLORIDE 5 MG TAB PO SCH (10:25)
[2020-01-30] MEDS ORDERED: MIRTAZAPINE 15 MG TAB PO SCH (21:00)
[2020-01-31] VITALS: BP 136/62
[2020-01-31] MEDS: SODIUM CHLORIDE 0.9% 1000ML 1,000 ML IV SCH (00:32)
[2020-01-31 04:00] VITALS: BP 130/62
[2020-01-31] MEDS: CEFTRIAXONE SOD 1 GM/NS 50 ML 50 ML IV SCH (05:27)
[2020-01-31] MEDS: LEVOTHYROXINE SODIUM 50 MCG TAB PO SCH (05:36)
[2020-01-31 08:00] VITALS: BP 117/57
[2020-01-31 08:00] LABS: BASOPHILS % 0.3 % (0.0-1.0); EOSINOPHILS # (AUTO) 0.3 (0.0-0.4); EOSINOPHILS % 2.7 % (0.0-6.0); HEMATOCRIT 24.1 % (34.2-44.1); HEMOGLOBIN 7.7 g/dL (12.0-16.0); LYMPHOCYTES # (AUTO) 1.7 (1.0-3.2); LYMPHOCYTES % 14.5 % (18.0-39.1); MEAN CORPUSCULAR HEMOGLOBIN 29.7 pg (28-32); MEAN CORPUSCULAR VOLUME 93.1 fL (81-99); MONOCYTES % 8.3 % (4.4-11.3); NEUTROPHILS # (AUTO) 8.4 (2.1-6.9); PLATELET COUNT 359 x10e3/uL (140-360); RED BLOOD COUNT 2.59 x10e6/uL (3.6-5.1)
[2020-01-31 08:07] VITALS: BP_SYST 117; BP_SYST 118; BP_DIAS 51; BP_DIAS 62
[2020-01-31 08:26] LABS: CALCIUM 10.5 mg/dL (8.4-10.2); CREATININE, SERUM 0.96 mg/dL (0.57-1.11)
[2020-01-31] MEDS ORDERED: PANTOPRAZOLE SODIUM 40 MG SUSPDR.PKT PO SCH (08:30)
[2020-01-31] MEDS ORDERED: BALSAM PERU/CASTOR OIL 60 GM OINT...G. TP SCH (09:00)
[2020-01-31] MEDS: TOPIRAMATE 25 MG TAB PO SCH (09:43)
[2020-01-31] MEDS: TACROLIMUS 1 MG CAP PO SCH (09:43)
[2020-01-31] MEDS: INSULIN LISPRO 100 UNIT/1 ML 3ML VIAL SQ SCH ×2 (09:43→11:30)
[2020-01-31] MEDS: OXYBUTYNIN CHLORIDE 5 MG TAB PO SCH (09:43)
[2020-01-31] MEDS: MEGESTROL ACETATE 40 MG TAB PO SCH (09:43)
[2020-01-31 12:00] VITALS: BP 108/41
[2020-01-31] MEDS ORDERED: ARTIFICIAL TEARS (OPTH) 15 ML BTL OP SCH (17:00)
[2020-02-01] MEDS ORDERED: PANTOPRAZOLE SODIUM 40 MG SUSPDR.PKT PEG SCH (07:30)
== END 2020-01-31 13:49 | disposition home or self-care (01) | DRG 689 ==
LOC: ER 13:39 → ERHOLD 17:26 → MED/SURG2 22:45 → MED/SURG 23:42 → MED/SURG2 23:44
PROVIDERS: ADMIT Internal Medicine; ATTEND Internal Medicine
DX: N39.0 Urinary tract infection, site not specified (principal); E43 Unspecified severe protein-calorie malnutrition; E87.1 Hypo-osmolality and hyponatremia; N17.9 Acute kidney failure, unspecified; L89.152 Pressure ulcer of sacral region, stage 2; I13.10 Hypertensive heart and chronic kidney disease without heart failure, with stage 1 through stage 4 chronic kidney disease, or unspecified chronic kidney disease; N18.30 Chronic kidney disease, stage 3 unspecified; R62.7 Adult failure to thrive; Z93.1 Gastrostomy status; E87.5 Hyperkalemia; E03.9 Hypothyroidism, unspecified; F03.90 Unspecified dementia, unspecified severity, without behavioral disturbance, psychotic disturbance, mood disturbance, and anxiety; Z94.9 Transplanted organ and tissue status, unspecified; I69.398 Other sequelae of cerebral infarction; I69.320 Aphasia following cerebral infarction; Z68.24 Body mass index [BMI] 24.0-24.9, adult
CPT/HCPCS: 36415; 70450; 70551; 71045; 72141; 80048; 80053; 80061; 81001; 82140; 82550; 82553; 82948; 83036; 83519; 83874; 83880; 84134; 84484; 85025; 86255; 93005; 93306; 95812; 99251; 99284; J0696; J7030; J7507; U0002

== ENCOUNTER 2020-02-04 15:26 | Inpatient (IN) | payer MEDICARE ==
[~2020-02-04] VITALS: Ht 154.9 cm; Wt 56.7 kg
[~2020-02-04 15:26] MED LIST changes: +ASPIRIN CHEW81 MG PEG; +GLIMEPIRIDE2 MG PO; +VALSARTAN80 MG GT; +ZOFRAN4 MG PO
[2020-02-04] MEDS ORDERED: DEXTROSE 50% SYRINGE 50 ML IV STA (15:53)
[2020-02-04] MEDS ORDERED: PANTOPRAZOLE 40 MG 10ML VIAL IV NR (16:00)
[2020-02-04 16:13] LABS: BASOPHILS % 0.2 % (0.0-1.0); EOSINOPHILS # (AUTO) 0.3 (0.0-0.4); EOSINOPHILS % 1.9 % (0.0-6.0); HEMOGLOBIN 7.6 g/dL (12.0-16.0); LYMPHOCYTES # (AUTO) 1.6 (1.0-3.2); LYMPHOCYTES % 9.3 % (18.0-39.1); MEAN CORPUSCULAR HEMOGLOBIN 30.2 pg (28-32); MEAN CORPUSCULAR HGB CONC 33.5 g/dL (31-35); MEAN CORPUSCULAR VOLUME 90.1 fL (81-99); MONOCYTES # (AUTO) 1.1 (0.2-0.8); MONOCYTES % 6.6 % (4.4-11.3); NEUTROPHILS # (AUTO) 13.8 (2.1-6.9); NEUTROPHILS % 80.8 % (38.7-80.0); PLATELET COUNT 366 x10e3/uL (140-360); RED BLOOD COUNT 2.52 x10e6/uL (3.6-5.1); RED CELL DISTRIBUTION WIDTH 15.9 % (11.7-14.4)
[2020-02-04 16:16] LABS: CLARITY,URINE HAZY (CLEAR); COLOR,URINE YELLOW (YELLOW); KETONES,URINE NEGATIVE (NEGATIVE); LEUKOCYTE ESTERASE ,URINE LARGE (NEGATIVE); NITRITE,URINE NEGATIVE (NEGATIVE); PROTEIN,URINE DIPSTICK 1+ (NEGATIVE); URINE UROBILINOGEN 0.2 mg/dL (0.2 - 1)
[2020-02-04 16:18] LABS: HEMATOCRIT 22.7 % (34.2-44.1)
[2020-02-04 16:19] LABS: INR 1.07; PROTHROMBIN TIME 14.4 seconds (11.9-14.5)
[2020-02-04] MEDS: DEXTROSE 5%/0.9% SOD CHL 1,000 ML IV SCH (16:19)
[2020-02-04] MEDS: OCTREOTIDE ACETATE 0.05 MG/ML AMP SQ SCH ×2 (16:19→22:09)
[2020-02-04 16:20] LABS: PARTIAL THROMBOPLASTIN TIME 29.2 seconds (23.8-35.5)
[2020-02-04 16:28] LABS: ALBUMIN 1.8 g/dL (3.5-5.0); ALBUMIN/GLOBULIN RATIO 0.4 (0.8-2.0); ANION GAP 12.6 mmol/L (8-16); CALCIUM 11.8 mg/dL (8.4-10.2); CREATININE, SERUM 1.11 mg/dL (0.57-1.11); MAGNESIUM 1.7 MG/DL (1.3-2.1); POTASSIUM 4.6 mmol/L (3.5-5.1)
[2020-02-04 16:40] LABS: CREATINE KINASE MB 1.4 ng/mL (0-5.0)
[2020-02-04 16:41] LABS: BACTERIA,URINE MODERATE /HPF; EPITHELIAL CELLS,URINE FEW /LPF; WBC,URINE (MAN) 21-50 /HPF (0-5)
[2020-02-04 16:42] LABS: YEAST,URINE MODERATE
[2020-02-04] MEDS ORDERED: DEXTROSE 50% SYRINGE 50 ML IV PRN (17:00)
[2020-02-04] MEDS: CEFTRIAXONE SOD 1 GM/NS 50 ML 50 ML IV SCH (17:15)
[2020-02-04] MEDS: AZITHROMYCIN 500MG/NS 250 ML 250 ML IV SCH (18:23)
[2020-02-04] MEDS ORDERED: DOCUSATE SODIUM 100 MG CAP PO PRN (19:15)
[2020-02-04] MEDS ORDERED: DOCUSATE SODIUM LIQD 100 MG/10 ML UDC PO PRN (20:00)
[2020-02-04] MEDS: MIRTAZAPINE 15 MG TAB PEG SCH (21:29)
[2020-02-04] MEDS: SODIUM CHLORIDE 1 GM TAB PEG SCH (21:29)
[2020-02-04] MEDS: TACROLIMUS 1 MG CAP PEG SCH (21:29)
[2020-02-04 22:00] VITALS: BP 110/52
[2020-02-04 22:38] VITALS: BP 110/52
[2020-02-05] VITALS (7 sets, daily range): BP systolic 108–140; BP diastolic 45–63
[2020-02-05 00:53] LABS: CREATINE KINASE MB 1.6 ng/mL (0-5.0)
[2020-02-05] MEDS: OCTREOTIDE ACETATE 0.05 MG/ML AMP SQ SCH ×4 (01:16→18:00)
[2020-02-05] MEDS: DEXTROSE 5%/0.9% SOD CHL 1,000 ML IV SCH (01:17)
[2020-02-05 04:59] LABS: BASOPHILS % 0.3 % (0.0-1.0); EOSINOPHILS # (AUTO) 0.4 (0.0-0.4); EOSINOPHILS % 3.6 % (0.0-6.0); HEMATOCRIT 24.3 % (34.2-44.1); HEMOGLOBIN 7.6 g/dL (12.0-16.0); LYMPHOCYTES # (AUTO) 1.4 (1.0-3.2); LYMPHOCYTES % 12.4 % (18.0-39.1); MEAN CORPUSCULAR HEMOGLOBIN 29.1 pg (28-32); MEAN CORPUSCULAR HGB CONC 31.3 g/dL (31-35); MONOCYTES # (AUTO) 1.1 (0.2-0.8); MONOCYTES % 9.3 % (4.4-11.3); NEUTROPHILS # (AUTO) 8.5 (2.1-6.9); NEUTROPHILS % 73.4 % (38.7-80.0); PLATELET COUNT 355 x10e3/uL (140-360); RED BLOOD COUNT 2.61 x10e6/uL (3.6-5.1); RED CELL DISTRIBUTION WIDTH 15.9 % (11.7-14.4)
[2020-02-05 05:01] LABS: MEAN CORPUSCULAR VOLUME 93.1 fL (81-99)
[2020-02-05 05:30] LABS: ALBUMIN 1.7 g/dL (3.5-5.0); ALBUMIN/GLOBULIN RATIO 0.4 (0.8-2.0); ANION GAP 10.2 mmol/L (8-16); CALCIUM 10.7 mg/dL (8.4-10.2); CREATININE, SERUM 1.02 mg/dL (0.57-1.11); POTASSIUM 4.2 mmol/L (3.5-5.1)
[2020-02-05 06:17] LABS: CREATINE KINASE MB 1.4 ng/mL (0-5.0)
[2020-02-05] MEDS: CEFTRIAXONE SOD 1 GM/NS 50 ML 50 ML IV SCH ×2 (06:47→17:38)
[2020-02-05] MEDS: LEVOTHYROXINE SODIUM 75 MCG TAB PEG SCH (06:47)
[2020-02-05] MEDS: SODIUM CHLORIDE 1 GM TAB PEG SCH ×3 (06:47→22:09)
[2020-02-05] MEDS: TOPIRAMATE 25 MG TAB PEG SCH ×2 (10:21→17:38)
[2020-02-05] MEDS: TACROLIMUS 1 MG CAP PEG SCH ×2 (10:21→22:09)
[2020-02-05] MEDS: OXYBUTYNIN CHLORIDE 5 MG TAB PEG SCH (10:21)
[2020-02-05] MEDS: ASPIRIN 81 MG CHEW TAB PEG SCH (10:22)
[2020-02-05] MEDS: PANTOPRAZOLE SODIUM 40 MG SUSPDR.PKT PEG SCH (10:23)
[2020-02-05] MEDS: AZITHROMYCIN 500MG/NS 250 ML 250 ML IV SCH (17:38)
[2020-02-05] MEDS: MIRTAZAPINE 15 MG TAB PEG SCH (22:09)
[2020-02-06] VITALS (7 sets, daily range): BP systolic 128–150; BP diastolic 56–70
[2020-02-06] MEDS: OCTREOTIDE ACETATE 0.05 MG/ML AMP SQ SCH ×3 (00:14→12:00)
[2020-02-06] MEDS: SODIUM CHLORIDE 1 GM TAB PEG SCH ×3 (05:27→21:01)
[2020-02-06] MEDS: LEVOTHYROXINE SODIUM 75 MCG TAB PEG SCH (05:27)
[2020-02-06] MEDS: CEFTRIAXONE SOD 1 GM/NS 50 ML 50 ML IV SCH ×2 (05:27→15:57)
[2020-02-06] MEDS ORDERED: DEXTROSE 50% SYRINGE 50 ML IV PRN (07:15)
[2020-02-06 07:42] LABS: BASOPHILS # (AUTO) 0.1 (0.0-0.1); BASOPHILS % 0.4 % (0.0-1.0); EOSINOPHILS # (AUTO) 0.3 (0.0-0.4); EOSINOPHILS % 2.2 % (0.0-6.0); HEMATOCRIT 26.3 % (34.2-44.1); HEMOGLOBIN 8.3 g/dL (12.0-16.0); LYMPHOCYTES # (AUTO) 1.8 (1.0-3.2); LYMPHOCYTES % 13.8 % (18.0-39.1); MEAN CORPUSCULAR HEMOGLOBIN 28.8 pg (28-32); MEAN CORPUSCULAR HGB CONC 31.6 g/dL (31-35); MEAN CORPUSCULAR VOLUME 91.3 fL (81-99); MONOCYTES % 7.7 % (4.4-11.3); NEUTROPHILS # (AUTO) 9.7 (2.1-6.9); NEUTROPHILS % 74.8 % (38.7-80.0); PLATELET COUNT 361 x10e3/uL (140-360); RED BLOOD COUNT 2.88 x10e6/uL (3.6-5.1); RED CELL DISTRIBUTION WIDTH 15.7 % (11.7-14.4)
[2020-02-06 08:07] LABS: ANION GAP 12.1 mmol/L (8-16); BLOOD UREA NITROGEN 38 mg/dL (7-26); BUN/CREATININE RATIO 54 (6-25); CALCIUM 10.3 mg/dL (8.4-10.2); CARBON DIOXIDE 20 mmol/L (22-29); CHLORIDE 101 mmol/L (98-107); CREATININE, SERUM 0.71 mg/dL (0.57-1.11); EST GLOMERULAR FILTRATION RATE > 60 ML/MIN (60-); GLUCOSE 246 mg/dL (74-118); POTASSIUM 4.1 mmol/L (3.5-5.1); SODIUM 129 mmol/L (136-145)
[2020-02-06 08:20] LABS: MAGNESIUM 1.5 MG/DL (1.3-2.1); PHOSPHORUS 3.9 MG/DL (2.3-4.7)
[2020-02-06] MEDS: OXYBUTYNIN CHLORIDE 5 MG TAB PEG SCH (08:22)
[2020-02-06] MEDS: PANTOPRAZOLE SODIUM 40 MG SUSPDR.PKT PEG SCH (08:22)
[2020-02-06] MEDS: TACROLIMUS 1 MG CAP PEG SCH ×2 (08:22→20:12)
[2020-02-06] MEDS: TOPIRAMATE 25 MG TAB PEG SCH ×2 (08:22→15:56)
[2020-02-06] MEDS: ASPIRIN 81 MG CHEW TAB PEG SCH (08:22)
[2020-02-06] MEDS: INSULIN REGULAR, HUMAN 100 UNIT/1 ML 3ML VIAL SQ SCH ×4 (08:30→21:00)
[2020-02-06] MEDS: BALSAM PERU/CASTOR OIL 60 GM OINT...G. TP SCH (09:32)
[2020-02-06] MEDS: ONDANSETRON HCL INJ 2MG/ML 2ML 2 MG/ML VIAL IV PRN (12:14)
[2020-02-06] MEDS: SENNOSIDES 8.6 MG TAB PO SCH ×2 (12:20→16:27)
[2020-02-06] MEDS ORDERED: SODIUM CHLORIDE 1 GM TAB PEG ONE (15:00)
[2020-02-06] MEDS: SODIUM CHLORIDE 0.9% 1000ML 1,000 ML IV SCH (15:55)
[2020-02-06] MEDS: AZITHROMYCIN 500MG/NS 250 ML 250 ML IV SCH (17:14)
[2020-02-06] MEDS: MIRTAZAPINE 15 MG TAB PEG SCH (20:12)
[2020-02-07] VITALS (8 sets, daily range): BP systolic 136–161; BP diastolic 61–81
[2020-02-07] MEDS: LEVOTHYROXINE SODIUM 75 MCG TAB PEG SCH (05:10)
[2020-02-07] MEDS: CEFTRIAXONE SOD 1 GM/NS 50 ML 50 ML IV SCH ×2 (05:10→17:46)
[2020-02-07] MEDS: SODIUM CHLORIDE 1 GM TAB PEG SCH ×3 (05:10→22:00)
[2020-02-07] MEDS: SODIUM CHLORIDE 0.9% 1000ML 1,000 ML IV SCH (05:11)
[2020-02-07] MEDS: INSULIN REGULAR, HUMAN 100 UNIT/1 ML 3ML VIAL SQ SCH ×4 (07:30→21:00)
[2020-02-07] MEDS: ASPIRIN 81 MG CHEW TAB PEG SCH (08:30)
[2020-02-07] MEDS: TACROLIMUS 1 MG CAP PEG SCH ×2 (08:30→21:00)
[2020-02-07] MEDS: BALSAM PERU/CASTOR OIL 60 GM OINT...G. TP SCH (08:30)
[2020-02-07] MEDS: PANTOPRAZOLE SODIUM 40 MG SUSPDR.PKT PEG SCH (08:30)
[2020-02-07] MEDS: OXYBUTYNIN CHLORIDE 5 MG TAB PEG SCH (08:30)
[2020-02-07] MEDS: SENNOSIDES 8.6 MG TAB PO SCH ×2 (08:30→17:46)
[2020-02-07] MEDS: TOPIRAMATE 25 MG TAB PEG SCH ×2 (08:30→17:46)
[2020-02-07] MEDS: AZITHROMYCIN 500MG/NS 250 ML 250 ML IV SCH (18:36)
[2020-02-07] MEDS: MIRTAZAPINE 15 MG TAB PEG SCH (21:00)
[2020-02-08] VITALS (8 sets, daily range): BP systolic 109–166; BP diastolic 54–78
[2020-02-08] MEDS: SODIUM CHLORIDE 0.9% 1000ML 1,000 ML IV SCH ×2 (00:05→16:16)
[2020-02-08] MEDS: CEFTRIAXONE SOD 1 GM/NS 50 ML 50 ML IV SCH ×2 (05:00→16:15)
[2020-02-08] MEDS: SODIUM CHLORIDE 1 GM TAB PEG SCH ×3 (05:26→22:33)
[2020-02-08] MEDS: LEVOTHYROXINE SODIUM 75 MCG TAB PEG SCH (05:26)
[2020-02-08] MEDS: INSULIN REGULAR, HUMAN 100 UNIT/1 ML 3ML VIAL SQ SCH ×4 (07:30→21:00)
[2020-02-08] MEDS: OXYBUTYNIN CHLORIDE 5 MG TAB PEG SCH (08:39)
[2020-02-08] MEDS: TACROLIMUS 1 MG CAP PEG SCH ×2 (08:39→21:00)
[2020-02-08] MEDS: PANTOPRAZOLE SODIUM 40 MG SUSPDR.PKT PEG SCH (08:39)
[2020-02-08] MEDS: TOPIRAMATE 25 MG TAB PEG SCH ×2 (08:39→16:16)
[2020-02-08] MEDS: SENNOSIDES 8.6 MG TAB PO SCH ×2 (08:39→16:16)
[2020-02-08] MEDS: ASPIRIN 81 MG CHEW TAB PEG SCH (08:39)
[2020-02-08] MEDS: BALSAM PERU/CASTOR OIL 60 GM OINT...G. TP SCH (08:39)
[2020-02-08] MEDS ORDERED: FLUCONAZOLE 100 MG/NS 50 ML 50 ML IV ONE (14:30)
[2020-02-08] MEDS: METOCLOPRAMIDE HCL 10 MG/2ML VIAL IV SCH ×2 (15:02→22:33)
[2020-02-08 15:36] LABS: BASOPHILS % 0.2 % (0.0-1.0); EOSINOPHILS # (AUTO) 0.2 (0.0-0.4); EOSINOPHILS % 1.7 % (0.0-6.0); HEMATOCRIT 25.2 % (34.2-44.1); HEMOGLOBIN 7.8 g/dL (12.0-16.0); LYMPHOCYTES # (AUTO) 1.6 (1.0-3.2); LYMPHOCYTES % 11.9 % (18.0-39.1); MEAN CORPUSCULAR HEMOGLOBIN 28.6 pg (28-32); MEAN CORPUSCULAR VOLUME 92.3 fL (81-99); MONOCYTES # (AUTO) 0.9 (0.2-0.8); MONOCYTES % 6.8 % (4.4-11.3); NEUTROPHILS # (AUTO) 10.8 (2.1-6.9); NEUTROPHILS % 78.3 % (38.7-80.0); PLATELET COUNT 373 x10e3/uL (140-360); RED BLOOD COUNT 2.73 x10e6/uL (3.6-5.1); RED CELL DISTRIBUTION WIDTH 15.7 % (11.7-14.4)
[2020-02-08 15:53] LABS: ANION GAP 12.4 mmol/L (8-16); CALCIUM 10.9 mg/dL (8.4-10.2); CREATININE, SERUM 0.94 mg/dL (0.57-1.11); POTASSIUM 3.4 mmol/L (3.5-5.1)
[2020-02-08 16:09] LABS: MAGNESIUM 1.4 MG/DL (1.3-2.1); PHOSPHORUS 3.1 MG/DL (2.3-4.7)
[2020-02-08] MEDS ORDERED: POTASSIUM CHLORIDE 10MEQ EA PO ONE (18:00)
[2020-02-08] MEDS: AZITHROMYCIN 500MG/NS 250 ML 250 ML IV SCH (18:35)
[2020-02-08] MEDS: MIRTAZAPINE 15 MG TAB PEG SCH (21:00)
[2020-02-09] VITALS (8 sets, daily range): BP systolic 131–157; BP diastolic 53–65
[2020-02-09] MEDS: CEFTRIAXONE SOD 1 GM/NS 50 ML 50 ML IV SCH ×2 (05:29→17:16)
[2020-02-09 05:30] LABS: BASOPHILS % 0.2 % (0.0-1.0); EOSINOPHILS # (AUTO) 0.2 (0.0-0.4); EOSINOPHILS % 1.4 % (0.0-6.0); HEMATOCRIT 25.6 % (34.2-44.1); LYMPHOCYTES # (AUTO) 1.7 (1.0-3.2); LYMPHOCYTES % 12.3 % (18.0-39.1); MEAN CORPUSCULAR HEMOGLOBIN 29.3 pg (28-32); MEAN CORPUSCULAR HGB CONC 31.3 g/dL (31-35); MEAN CORPUSCULAR VOLUME 93.8 fL (81-99); MONOCYTES % 7.4 % (4.4-11.3); NEUTROPHILS # (AUTO) 10.8 (2.1-6.9); NEUTROPHILS % 77.5 % (38.7-80.0); PLATELET COUNT 364 x10e3/uL (140-360); RED BLOOD COUNT 2.73 x10e6/uL (3.6-5.1); RED CELL DISTRIBUTION WIDTH 15.5 % (11.7-14.4)
[2020-02-09 06:02] LABS: ANION GAP 12.8 mmol/L (8-16); BLOOD UREA NITROGEN 32 mg/dL (7-26); BUN/CREATININE RATIO 38 (6-25); CALCIUM 11.1 mg/dL (8.4-10.2); CARBON DIOXIDE 21 mmol/L (22-29); CHLORIDE 112 mmol/L (98-107); CREATININE, SERUM 0.85 mg/dL (0.57-1.11); EST GLOMERULAR FILTRATION RATE > 60 ML/MIN (60-); GLUCOSE 123 mg/dL (74-118); POTASSIUM 3.8 mmol/L (3.5-5.1); SODIUM 142 mmol/L (136-145)
[2020-02-09] MEDS: METOCLOPRAMIDE HCL 10 MG/2ML VIAL IV SCH ×3 (06:03→22:30)
[2020-02-09] MEDS: LEVOTHYROXINE SODIUM 75 MCG TAB PEG SCH (06:03)
[2020-02-09] MEDS: SODIUM CHLORIDE 1 GM TAB PEG SCH ×3 (06:03→22:30)
[2020-02-09] MEDS: INSULIN REGULAR, HUMAN 100 UNIT/1 ML 3ML VIAL SQ SCH ×4 (07:30→22:30)
[2020-02-09] MEDS: PANTOPRAZOLE SODIUM 40 MG SUSPDR.PKT PEG SCH (08:56)
[2020-02-09] MEDS: ASPIRIN 81 MG CHEW TAB PEG SCH (08:56)
[2020-02-09] MEDS: TACROLIMUS 1 MG CAP PEG SCH ×2 (08:57→22:30)
[2020-02-09] MEDS: SENNOSIDES 8.6 MG TAB PO SCH ×2 (08:57→17:17)
[2020-02-09] MEDS: TOPIRAMATE 25 MG TAB PEG SCH ×2 (08:57→17:16)
[2020-02-09] MEDS: OXYBUTYNIN CHLORIDE 5 MG TAB PEG SCH (08:57)
[2020-02-09] MEDS: BALSAM PERU/CASTOR OIL 60 GM OINT...G. TP SCH (09:21)
[2020-02-09] MEDS: SODIUM CHLORIDE 0.9% 1000ML 1,000 ML IV SCH (12:53)
[2020-02-09] MEDS: ONDANSETRON HCL INJ 2MG/ML 2ML 2 MG/ML VIAL IV PRN (13:34)
[2020-02-09] MEDS: AZITHROMYCIN 500MG/NS 250 ML 250 ML IV SCH (18:51)
[2020-02-09] MEDS: MIRTAZAPINE 15 MG TAB PEG SCH (22:30)
[2020-02-10] VITALS (8 sets, daily range): BP systolic 137–162; BP diastolic 54–68
[2020-02-10] MEDS: CEFTRIAXONE SOD 1 GM/NS 50 ML 50 ML IV SCH ×2 (06:00→17:04)
[2020-02-10] MEDS: LEVOTHYROXINE SODIUM 75 MCG TAB PEG SCH (06:14)
[2020-02-10] MEDS: SODIUM CHLORIDE 0.9% 1000ML 1,000 ML IV SCH (06:14)
[2020-02-10] MEDS: SODIUM CHLORIDE 1 GM TAB PEG SCH ×3 (06:14→22:00)
[2020-02-10] MEDS: METOCLOPRAMIDE HCL 10 MG/2ML VIAL IV SCH ×3 (06:14→22:00)
[2020-02-10] MEDS: INSULIN REGULAR, HUMAN 100 UNIT/1 ML 3ML VIAL SQ SCH ×4 (07:30→21:00)
[2020-02-10] MEDS: OXYBUTYNIN CHLORIDE 5 MG TAB PEG SCH (09:34)
[2020-02-10] MEDS: SENNOSIDES 8.6 MG TAB PO SCH ×2 (09:34→17:00)
[2020-02-10] MEDS: ASPIRIN 81 MG CHEW TAB PEG SCH (09:34)
[2020-02-10] MEDS: TOPIRAMATE 25 MG TAB PEG SCH ×2 (09:34→17:04)
[2020-02-10] MEDS: BALSAM PERU/CASTOR OIL 60 GM OINT...G. TP SCH (09:34)
[2020-02-10] MEDS: METOPROLOL TARTRATE 25 MG TAB PO SCH ×2 (09:34→20:56)
[2020-02-10] MEDS: TACROLIMUS 1 MG CAP PEG SCH ×2 (09:34→20:54)
[2020-02-10] MEDS: MULTIVITAMINS/MINERALS TAB PO SCH (09:34)
[2020-02-10 10:40] LABS: BASOPHILS % 0.2 % (0.0-1.0); EOSINOPHILS # (AUTO) 0.2 (0.0-0.4); EOSINOPHILS % 1.3 % (0.0-6.0); HEMATOCRIT 24.3 % (34.2-44.1); HEMOGLOBIN 7.5 g/dL (12.0-16.0); LYMPHOCYTES # (AUTO) 1.5 (1.0-3.2); LYMPHOCYTES % 10.9 % (18.0-39.1); MEAN CORPUSCULAR HEMOGLOBIN 29.2 pg (28-32); MEAN CORPUSCULAR HGB CONC 30.9 g/dL (31-35); MEAN CORPUSCULAR VOLUME 94.6 fL (81-99); MONOCYTES # (AUTO) 0.9 (0.2-0.8); MONOCYTES % 6.7 % (4.4-11.3); NEUTROPHILS # (AUTO) 10.6 (2.1-6.9); NEUTROPHILS % 79.3 % (38.7-80.0); PLATELET COUNT 376 x10e3/uL (140-360); RED BLOOD COUNT 2.57 x10e6/uL (3.6-5.1); RED CELL DISTRIBUTION WIDTH 15.5 % (11.7-14.4)
[2020-02-10 10:58] LABS: ANION GAP 12.5 mmol/L (8-16); CALCIUM 11.1 mg/dL (8.4-10.2); CREATININE, SERUM 0.96 mg/dL (0.57-1.11); MAGNESIUM 1.4 MG/DL (1.3-2.1); PHOSPHORUS 2.8 MG/DL (2.3-4.7); POTASSIUM 3.5 mmol/L (3.5-5.1)
[2020-02-10] MEDS: PANTOPRAZOLE SODIUM 40 MG SUSPDR.PKT PEG SCH (11:00)
[2020-02-10] MEDS ORDERED: SODIUM CHLORIDE 1 GM TAB PEG SCH (14:00)
[2020-02-10] MEDS: AZITHROMYCIN 500MG/NS 250 ML 250 ML IV SCH (18:13)
[2020-02-10] MEDS: MIRTAZAPINE 15 MG TAB PEG SCH (20:54)
[2020-02-11 00:07] VITALS: BP 141/68
[2020-02-11] MEDS: CEFTRIAXONE SOD 1 GM/NS 50 ML 50 ML IV SCH (05:00)
[2020-02-11] MEDS ORDERED: SODIUM CHLORIDE 0.9% 250ML 250 ML ONE (05:18)
[2020-02-11 05:52] VITALS: BP 140/58
[2020-02-11] MEDS: METOCLOPRAMIDE HCL 10 MG/2ML VIAL IV SCH (06:16)
[2020-02-11] MEDS: LEVOTHYROXINE SODIUM 75 MCG TAB PEG SCH (06:16)
[2020-02-11] MEDS: SODIUM CHLORIDE 1 GM TAB PEG SCH (06:16)
[2020-02-11] MEDS ORDERED: VENELEX OINTMEN60 GM TP (06:17)
[2020-02-11] MEDS ORDERED: Multivitamins/Minerals PO (06:17)
[2020-02-11] MEDS ORDERED: COLACE100 MG/10 PO (06:17)
[2020-02-11] MEDS ORDERED: LOPRESSOR25 MG PO (06:17)
[2020-02-11] MEDS ORDERED: SODIUM CHLORIDE1 GM PEG (06:17)
[2020-02-11] MEDS ORDERED: SENOKOT8.6 MG PO (06:17)
[2020-02-11] MEDS ORDERED: REGLAN5 MG PO (06:17)
[2020-02-11 06:36] LABS: BASOPHILS % 0.2 % (0.0-1.0); EOSINOPHILS # (AUTO) 0.1 (0.0-0.4); EOSINOPHILS % 0.5 % (0.0-6.0); HEMATOCRIT 25.3 % (34.2-44.1); HEMOGLOBIN 7.5 g/dL (12.0-16.0); LYMPHOCYTES # (AUTO) 1.6 (1.0-3.2); LYMPHOCYTES % 12.6 % (18.0-39.1); MEAN CORPUSCULAR HEMOGLOBIN 28.4 pg (28-32); MEAN CORPUSCULAR HGB CONC 29.6 g/dL (31-35); MEAN CORPUSCULAR VOLUME 95.8 fL (81-99); MONOCYTES # (AUTO) 0.8 (0.2-0.8); MONOCYTES % 6.4 % (4.4-11.3); NEUTROPHILS # (AUTO) 10.1 (2.1-6.9); NEUTROPHILS % 78.4 % (38.7-80.0); PLATELET COUNT 379 x10e3/uL (140-360); RED BLOOD COUNT 2.64 x10e6/uL (3.6-5.1); RED CELL DISTRIBUTION WIDTH 15.5 % (11.7-14.4)
[2020-02-11 07:00] LABS: ANION GAP 12.2 mmol/L (8-16); CALCIUM 11.6 mg/dL (8.4-10.2); CREATININE, SERUM 1.03 mg/dL (0.57-1.11); MAGNESIUM 1.4 MG/DL (1.3-2.1); PHOSPHORUS 3.1 MG/DL (2.3-4.7); POTASSIUM 3.2 mmol/L (3.5-5.1)
[2020-02-11] MEDS: INSULIN REGULAR, HUMAN 100 UNIT/1 ML 3ML VIAL SQ SCH (07:30)
[2020-02-11 07:35] VITALS: BP 147/60
[2020-02-11 07:38] VITALS: BP 147/60
[2020-02-11] MEDS: OXYBUTYNIN CHLORIDE 5 MG TAB PEG SCH (08:12)
[2020-02-11] MEDS: METOPROLOL TARTRATE 25 MG TAB PO SCH (08:12)
[2020-02-11] MEDS: BALSAM PERU/CASTOR OIL 60 GM OINT...G. TP SCH (08:12)
[2020-02-11] MEDS: ASPIRIN 81 MG CHEW TAB PEG SCH (08:12)
[2020-02-11] MEDS: TOPIRAMATE 25 MG TAB PEG SCH (08:12)
[2020-02-11] MEDS: MULTIVITAMINS/MINERALS TAB PO SCH (08:12)
[2020-02-11] MEDS: TACROLIMUS 1 MG CAP PEG SCH (08:12)
[2020-02-11] MEDS: PANTOPRAZOLE SODIUM 40 MG SUSPDR.PKT PEG SCH (08:12)
[2020-02-11] MEDS: SENNOSIDES 8.6 MG TAB PO SCH (08:12)
[2020-02-11] MEDS ORDERED: POTASSIUM CHLORIDE 20 MEQ TAB CR PO STA (08:52)
== END 2020-02-11 10:12 | disposition home or self-care (01) | DRG 871 ==
LOC: ER 15:35 → ERHOLD 17:09 → IMCU 21:49 → MED/SURG3 02-05 16:34
PROVIDERS: ADMIT Internal Medicine; ATTEND Internal Medicine
DX: A41.9 Sepsis, unspecified organism (principal); J15.9 Unspecified bacterial pneumonia; E43 Unspecified severe protein-calorie malnutrition; N39.0 Urinary tract infection, site not specified; E87.1 Hypo-osmolality and hyponatremia; Z94.4 Liver transplant status; N17.9 Acute kidney failure, unspecified; E11.649 Type 2 diabetes mellitus with hypoglycemia without coma; L89.152 Pressure ulcer of sacral region, stage 2; E86.0 Dehydration; I12.9 Hypertensive chronic kidney disease with stage 1 through stage 4 chronic kidney disease, or unspecified chronic kidney disease; N18.30 Chronic kidney disease, stage 3 unspecified; F03.90 Unspecified dementia, unspecified severity, without behavioral disturbance, psychotic disturbance, mood disturbance, and anxiety; Z20.828 Contact with and (suspected) exposure to other viral communicable diseases; Z68.23 Body mass index [BMI] 23.0-23.9, adult; E03.9 Hypothyroidism, unspecified
CPT/HCPCS: 36415; 71045; 80048; 80053; 81001; 82550; 82553; 82948; 83605; 83735; 84100; 84484; 85025; 85610; 85730; 87040; 87086; 93005; 96361; 96372; 97139; 99251; 99285; J0456; J0696; J1450; J1817; J2354; J2405; J2765; J7030; J7042; J7050; J7507; J7799; U0002

== ENCOUNTER 2020-02-14 15:41 | Inpatient (IN) | payer MEDICARE ==
[~2020-02-14] VITALS: Ht 154.9 cm; Wt 46.3 kg
[~2020-02-14 15:41] MED LIST changes: +COLACE100 MG/10 PO; +LOPRESSOR25 MG PO; +Multivitamins/Minerals PO; +REGLAN5 MG PO; +SENOKOT8.6 MG PO; +SODIUM CHLORIDE1 GM PEG; +VENELEX OINTMEN60 GM TP
[2020-02-14] MEDS ORDERED: SODIUM CHLORIDE 0.9% 1000ML 1,000 ML IV STA (15:54)
[2020-02-14] MEDS ORDERED: ASPIRIN 81 MG CHEW TAB PO ONE (16:00)
[2020-02-14 16:30] LABS: BASOPHILS # (AUTO) 0.1 (0.0-0.1); BASOPHILS % 0.3 % (0.0-1.0); EOSINOPHILS # (AUTO) 0.1 (0.0-0.4); EOSINOPHILS % 0.3 % (0.0-6.0); HEMATOCRIT 24.4 % (34.2-44.1); HEMOGLOBIN 7.4 g/dL (12.0-16.0); LYMPHOCYTES # (AUTO) 2.9 (1.0-3.2); LYMPHOCYTES % 15.9 % (18.0-39.1); MEAN CORPUSCULAR HEMOGLOBIN 28.5 pg (28-32); MEAN CORPUSCULAR HGB CONC 30.3 g/dL (31-35); MEAN CORPUSCULAR VOLUME 93.8 fL (81-99); MONOCYTES # (AUTO) 1.5 (0.2-0.8); MONOCYTES % 8.4 % (4.4-11.3); NEUTROPHILS % 72.3 % (38.7-80.0); PLATELET COUNT 482 x10e3/uL (140-360); RED CELL DISTRIBUTION WIDTH 15.5 % (11.7-14.4)
[2020-02-14 16:48] LABS: ALANINE AMINOTRANSFERASE 10 IU/L (0-55); ALBUMIN 1.8 g/dL (3.5-5.0); ALBUMIN/GLOBULIN RATIO 0.4 (0.8-2.0); ALKALINE PHOSPHATASE 93 IU/L (40-150); ANION GAP 13.9 mmol/L (8-16); BLOOD UREA NITROGEN 61 mg/dL (7-26); BUN/CREATININE RATIO 41 (6-25); CARBON DIOXIDE 26 mmol/L (22-29); CHLORIDE 110 mmol/L (98-107); CREATININE, SERUM 1.47 mg/dL (0.57-1.11); EST GLOMERULAR FILTRATION RATE 34 ML/MIN (60-); GLUCOSE 192 mg/dL (74-118); POTASSIUM 3.9 mmol/L (3.5-5.1); SODIUM 146 mmol/L (136-145)
[2020-02-14 16:50] LABS: CREATINE KINASE < 7 IU/L (29-168)
[2020-02-14 16:51] LABS: CALCIUM 13.5 mg/dL (8.4-10.2)
[2020-02-14] MEDS ORDERED: CEFEPIME 1GM/NS 0.9% 50 ML 50 ML IV SCH (17:30)
[2020-02-14] MEDS ORDERED: PAMIDRONATE DISODIUM 90 MG in SODIUM CHLORIDE 0.9% 1000ML 1,000 ML IV ONE (17:45)
[2020-02-14] MEDS: SODIUM CHLORIDE 0.9% 1000ML 1,000 ML IV SCH (18:21)
[2020-02-14 20:00] VITALS: BP 118/46
[2020-02-14 20:07] VITALS: BP 118/46
[2020-02-14 20:32] VITALS: BP 118/46
[2020-02-14] MEDS ORDERED: ONDANSETRON HCL 4 MG ORAL DISINTEGRATING TAB PO PRN (22:00)
[2020-02-14] MEDS ORDERED: DEXTROSE 50% SYRINGE 50 ML IV PRN (22:00)
[2020-02-14] MEDS ORDERED: DOCUSATE SODIUM LIQD 100 MG/10 ML UDC PO PRN (22:00)
[2020-02-14] MEDS: SODIUM CHLORIDE 1 GM TAB PEG SCH (22:21)
[2020-02-14] MEDS ORDERED: DOCUSATE SODIUM LIQD 100 MG/10 ML UDC GT PRN (22:45)
[2020-02-15] VITALS: BP 121/51
[2020-02-15 02:01] LABS: CREATINE KINASE < 7 IU/L (29-168)
[2020-02-15 04:00] VITALS: BP_SYST 120; BP_SYST 139; BP_DIAS 55
[2020-02-15] MEDS: SODIUM CHLORIDE 0.9% 1000ML 1,000 ML IV SCH ×2 (05:30→09:00)
[2020-02-15] MEDS: SODIUM CHLORIDE 1 GM TAB PEG SCH (06:00)
[2020-02-15 06:14] LABS: BASOPHILS # (AUTO) 0.1 (0.0-0.1); BASOPHILS % 0.4 % (0.0-1.0); EOSINOPHILS # (AUTO) 0.1 (0.0-0.4); EOSINOPHILS % 0.5 % (0.0-6.0); HEMATOCRIT 23.5 % (34.2-44.1); LYMPHOCYTES # (AUTO) 1.7 (1.0-3.2); LYMPHOCYTES % 12.2 % (18.0-39.1); MEAN CORPUSCULAR HGB CONC 29.8 g/dL (31-35); MONOCYTES # (AUTO) 1.2 (0.2-0.8); MONOCYTES % 8.6 % (4.4-11.3); NEUTROPHILS # (AUTO) 10.8 (2.1-6.9); NEUTROPHILS % 75.6 % (38.7-80.0); PLATELET COUNT 470 x10e3/uL (140-360); RED BLOOD COUNT 2.41 x10e6/uL (3.6-5.1); RED CELL DISTRIBUTION WIDTH 15.6 % (11.7-14.4)
[2020-02-15 06:20] LABS: MEAN CORPUSCULAR VOLUME 97.5 fL (81-99)
[2020-02-15] MEDS ORDERED: AZITHROMYCIN500 MG PO (06:28)
[2020-02-15] MEDS ORDERED: FLUCONAZOLE100 MG PO (06:28)
[2020-02-15 06:43] LABS: ALBUMIN 1.6 g/dL (3.5-5.0); ALBUMIN/GLOBULIN RATIO 0.4 (0.8-2.0); ANION GAP 10.1 mmol/L (8-16); CALCIUM 11.3 mg/dL (8.4-10.2); CREATININE, SERUM 1.15 mg/dL (0.57-1.11); POTASSIUM 3.1 mmol/L (3.5-5.1)
[2020-02-15] MEDS ORDERED: LEVOTHYROXINE SODIUM 75 MCG TAB GT SCH (07:30)
[2020-02-15] MEDS ORDERED: PANTOPRAZOLE SODIUM 40 MG SUSPDR.PKT GT SCH (07:30)
[2020-02-15 07:50] VITALS: BP 133/65
[2020-02-15] MEDS ORDERED: METOCLOPRAMIDE HCL 10MG/10ML UDC GT SCH (08:00)
[2020-02-15 08:03] VITALS: BP 133/65
[2020-02-15] MEDS: INSULIN REGULAR, HUMAN 100 UNIT/1 ML 3ML VIAL SQ SCH ×2 (08:56→11:30)
[2020-02-15] MEDS ORDERED: MULTIVITAMIN MINERAL GT SCH (09:00)
[2020-02-15] MEDS ORDERED: VALSARTAN 80 MG TAB GT SCH (09:00)
[2020-02-15] MEDS ORDERED: BALSAM PERU/CASTOR OIL 60 GM OINT...G. TP SCH (09:00)
[2020-02-15] MEDS ORDERED: OXYBUTYNIN CHLORIDE 5 MG TAB GT SCH (09:00)
[2020-02-15] MEDS ORDERED: SENNOSIDES 8.6 MG TAB GT SCH (09:00)
[2020-02-15] MEDS ORDERED: TOPIRAMATE 25 MG TAB GT SCH (09:00)
[2020-02-15] MEDS ORDERED: METOPROLOL TARTRATE 25 MG TAB GT SCH (09:00)
[2020-02-15] MEDS ORDERED: TACROLIMUS 1 MG CAP PO SCH (09:00)
[2020-02-15 10:40] LABS: CREATINE KINASE MB 1.4 ng/mL (0-5.0)
[2020-02-15 12:00] VITALS: BP 121/72
[2020-02-15] MEDS ORDERED: KCL 20 MEQ PACKET/ ORAL SOLN PEG ONE (12:15)
[2020-02-15] MEDS ORDERED: MIRTAZAPINE 15 MG TAB GT SCH (21:00)
== END 2020-02-15 12:35 | disposition home or self-care (01) | DRG 641 ==
LOC: ER 15:52 → ERHOLD 16:54 → MED/SURG3 19:04
PROVIDERS: ADMIT Internal Medicine; ATTEND Internal Medicine
DX: E83.52 Hypercalcemia (principal); Z94.4 Liver transplant status; E87.1 Hypo-osmolality and hyponatremia; N39.0 Urinary tract infection, site not specified; Z68.1 Body mass index [BMI] 19.9 or less, adult; R53.1 Weakness; D64.9 Anemia, unspecified; F03.90 Unspecified dementia, unspecified severity, without behavioral disturbance, psychotic disturbance, mood disturbance, and anxiety; E11.22 Type 2 diabetes mellitus with diabetic chronic kidney disease; I12.9 Hypertensive chronic kidney disease with stage 1 through stage 4 chronic kidney disease, or unspecified chronic kidney disease; N18.30 Chronic kidney disease, stage 3 unspecified; R62.7 Adult failure to thrive; E11.649 Type 2 diabetes mellitus with hypoglycemia without coma; E86.0 Dehydration; E03.9 Hypothyroidism, unspecified; D72.829 Elevated white blood cell count, unspecified; Z20.828 Contact with and (suspected) exposure to other viral communicable diseases
CPT/HCPCS: 36415; 80053; 82550; 82553; 82948; 83605; 84484; 85025; 87040; 93005; 96361; 99251; 99284; J0692; J1817; J2430; J7030; J7507; U0002